=== PATIENT | male | born 1960 | race American Indian/Alaskan Native ===

== ENCOUNTER 2020-10-01 09:22 | Observation (INO) | payer MEDICARE, OTHER ==
--- NOTE | 2020-10-01 11:05 | Electrocardiograph Report ---
[facility] Test Date: 2020-10-01 Test Time: 09:41:32 Pat Name: MERRILL MAJOR Department: Room: Gender: M Hand Cell Tuber: RAJI : 1960 Requested By: ED DOC Order Number: [id number] Reading MD: Robert Carver Measurements Intervals [place] Rate: 68 P: -29 [place]: 179 QRS: 41 QRSD: 80 T: 87 QT: 465 QTc: 496 Interpretive Statements Sinus rhythm No previous ECG available for comparison Electronically Signed On 10-01-2020 11:05:11 EDT by Robert Carver
[2020-10-01] MEDS ORDERED: LACTATED RINGERS 1,000 ML IV ONE (11:33)
[2020-10-01] MEDS ORDERED: METOCLOPRAMIDE 10 MG/2 ML INJ IV ONE (11:33)
[2020-10-01] MEDS ORDERED: HYDROmorphone 1 MG/1 ML INJ IV ONE (11:33)
[2020-10-01] MEDS ORDERED: hydrALAZINE 20 MG/1 ML INJ IV ONE ×2 (11:36→13:18)
--- NOTE | 2020-10-01 11:36 | Emergency Department Report ---
ED General Adult HPI - General Chief complaint: High BP Stated complaint: N/V, WEAKNESS, ELEVATED BLOOD PRESSURE PUI?: No Time Seen by Provider: 10/01/20 11:19 Source: patient, RN notes reviewed, old records reviewed Mode of arrival: Ambulatory Limitations: No Limitations - History of Present Illness Initial comments: The patient is a 59-year-old gentleman. He is not known to myself previously. He currently goes to the [facility]. He reports that he receives hemodialysis Tuesday, Tuesday, Tuesday. His past medical history includes end-stage renal disease, on hemodialysis, diabetes type 2, with history of diabetic ketoacidosis, gastroparesis, hypertension, hypothyroidism, medication noncompliance. The patient recently started hemodialysis within the past month. He had a right-sided thoracic vascular access catheter placed [facility]. He last was dialyzed 2 days ago on Tuesday, September 29. He presents to the ER today with a complaint of abdominal cramping, nausea, v omiting, fatigue. The patient denies headache, neck pain, chest pain. The patient reports that he feels uncomfortable, he is also endorses urinary symptoms. He denies focal extremity weakness and numbness. To me, the patient makes no complaint of homicidality, suicidality, or wanting to overdose. However, he did inform our triage nurses that he was contemplating suicidality. He is not sure if he is in DKA or having a gastroparesis flare. His abdominal cramping is constant, does not radiate anywhere, and is at this point time, does not have exacerbating or relieving factors of the patient can point out. -: Gradual, hour(s) Location: abdomen Radiation: non-radiation Quality: aching Consistency: constant Improves with: none Worsens with: none - Related Data Home Medications Medication Instructions Recorded Confirmed Last Taken Propranolol HCl 10 mg PO DAILY 01/19/18 01/19/18 02/15/17 10 mg lisinopriL [Zestril TAB] 10 mg PO QDAY 01/19/18 01/19/18 02/15/17 10 mg metFORMIN [Glucophage] 500 mg PO QDAY 01/19/18 01/19/18 01/17/18 500 mg methIMAzole [Methimazole] 10 mg PO DAILY 01/19/18 01/19/1817 10 mg Allergies Allergy/AdvReac Type Severity Reaction Status Date / Time No Known Allergies Allergy Unverified 01/19/18 09:04 ED Review of Systems ROS: Stated complaint: N/V, WEAKNESS, ELEVATED BLOOD PRESSURE Other details as noted in HPI Constitutional: malaise, weakness. denies: fever Eyes: denies: eye discharge ENT: denies: epistaxis Respiratory: denies: cough Cardiovascular: denies: chest pain Gastrointestinal: abdominal pain, nausea, vomiting Genitourinary: dysuria Musculoskeletal: myalgia Neurological: weakness Psychiatric: anxiety ED Past Medical Hx - Past Medical History Previous Medical History?: Yes Hx Hypertension: Yes Hx Congestive Heart Failure: No Hx Diabetes: Yes Hx Renal Disease: Yes (Dialysis pt x 3 weeks, chest access) Hx Asthma: No - Surgical History Past Surgical History?: No - Social History Smoking Status: Former Smoker - Medications Home Medications: Home Medications Medication Instructions Recorded Confirmed Last Taken Type Propranolol HCl 10 mg PO DAILY 01/19/18 01/19/18 02/15/17 History 10 mg lisinopriL [Zestril TAB] 10 mg PO QDAY 01/19/18 01/19/18 02/15/17 History 10 mg metFORMIN [Glucophage] 500 mg PO QDAY 01/19/18 01/19/18 01/17/18 History 500 mg methIMAzole [Methimazole] 10 mg PO DAILY 01/19/18 01/19/18 02/15/17 History 10 mg ED Physical Exam - General Limitations: No Limitations General appearance: alert, anxious, in distress - Head Head exam: Present: atraumatic, normocephalic - Eye Eye exam: Present: normal appearance, EOMI. Absent: nystagmus - ENT ENT exam: Present: normal exam, normal orophraynx, mucous membranes moist, normal external ear exam - Neck Neck exam: Present: normal inspection, full ROM. Absent: tenderness, meningismus - Respiratory Respiratory exam: Present: normal lung sounds bilaterally, other (There is a right-sided thoracic vascular access catheter, without redness, pus or streaking.). Absent: respiratory distress, wheezes, rales, rhonchi, stridor, decreased breath sounds - Cardiovascular Cardiovascular Exam: Present: regular rate, normal rhythm, normal heart sounds. Absent: bradycardia, tachycardia, irregular rhythm, systolic murmur, diastolic murmur, rubs, gallop - GI/Abdominal GI/Abdominal exam: Present: soft. Absent: distended, tenderness, guarding, rebound, rigid, pulsatile mass - Rectal Rectal exam: Present: deferred - Extremities Exam Extremities exam: Present: normal inspection, full ROM, other (2+ pulses noted in the bilateral upper and lower extremities. There is no palpable cord. negative Homans sign. Muscular compartments are soft. The pelvis is stable.). Absent: calf tenderness - Back Exam Back exam: Present: normal inspection. Absent: tenderness, CVA tenderness (R), CVA tenderness (L), paraspinal tenderness, vertebral tenderness - Neurological Exam Neurological exam: Present: alert, oriented X3, other (No facial droop. Tongue midline. Extraocular movements intact bilaterally. Facial sensation intact to light touch in V1, V2, V3 distribution bilaterally. 5 and a 5 strength in 4 extremities. Sensation intact to light touch in 4 extremities.). Absent: motor sensory deficit - Psychiatric Psychiatric exam: Present: anxious - Skin Skin exam: Present: warm, dry, intact, normal color. Absent: rash ED Course Vital Signs 10/01/20 10/01/20 09:29 11:52 Temperature 98.0 F Pulse Rate 66 68 Respiratory 20 Rate Blood Pressure 225/113 253/122 O2 Sat by Pulse 100 Oximetry - Reevaluation(s) Reevaluation #1: 10/01/20 11:59 Differential diagnosis, including but not limited to: Hypertensive urgency/emergency, diabetic gastroparesis, diabetic ketoacidosis, azotemia, uremia, metabolic acidosis, encounter for behavioral health screening examination, dysthymia Assessment and plan: 59-year-old gentleman, with multiple chronic medical issues, with acute hypertension, who has not received hemodialysis in 48 hours, presenting with abdominal pain, cramping, history of nausea and vomiting, abdomen soft and benign, without rebound, guarding or peritoneal sign, with a secondary complaint of contemplating suicidality as endorsed to our triage nurse. To me, the patient makes no complaint of endorsement of homicidality or suicidality. The patient remains awake, alert, oriented and sober and exhibits decision-making capacity. Patient was placed on hold status given his articulated complaints to our triage nurse. At this point in time, patient does not meet criteria for 1013 but we will obtain a psychiatric consultation and evaluation. The patient is requesting supportive and symptomatic therapy, he will therefore be placed on a threat monitoring analyst, will give pain medication, nausea medication, obtain x-ray of chest/abdomen and pelvis, and obtain appropriate laboratory studies. Reassess after initial data points. 10/01/20 13:40 While in the emergency room, the patient was progressively and increasingly epifanio tated. His blood pressure remained elevated, and he was having retching. He also removed his IVs. The patient adamantly informed me that he is not homicidal or suicidal. However he is still retching, and his blood pressure is out of control. After additional haloperidol, and hydralazine, symptoms are improved. Contacted nephrology on-call, Dr. Rangel Have discussed this patient's history, physical, laboratory studies, imaging studies and overall plan of care. Nephrology will follow in consultation to assist with hemodialysis initiation, and blood pressure management. We will defer to inpatient team to follow-up on psychiatric recommendations. Hospital physician, Dr. Yecenia Hudson to admit to [facility] 10/01/20 14:20 Patient now resting comfortably on stretcher after multiple interventions. Blood pressure improved. No active vomiting at this time. Defer to inpatient team to follow-up on psychiatric recommendations. ED Medical Decision Making - Lab Data Result diagrams: 10/01/20 12:09 10/01/20 12:09 Vital Signs 10/01/20 10/01/20 09:29 11:52 Temperature 98.0 F Pulse Rate 66 68 Respiratory 20 Rate Blood Pressure 225/113 253/122 O2 Sat by Pulse 100 Oximetry - EKG Data -: EKG Interpreted by Tx EKG shows normal: sinus rhythm Rate: normal - EKG Data 10/01/20 13:40 EKG is interpreted at 09: 41 Sinus rhythm, 68 bpm. Normal axis, QTC 496 ms. Incomplete right bundle branch block. Left ventricular hypertrophy. Abnormal EKG. Not a STEMI. - Radiology Data Radiology results: pending, report reviewed, image reviewed [facility] [address] [place] [address] XRay Report Signed Patient: MERRILL MAJOR MR#: [id number] 9 : 1960 Acct:[id number] Age/Sex: 59 / M ADM Date: 10/01/20 Loc: ED Attending Dr: Ordering Physician: WALTER QUINTANA MD Date of Service: 10/01/20 Procedure(s): XR abd series w cxr 1V Accession Number(s): [id number] cc: WALTER QUINTANA MD Fluoro Time In Minutes: ABDOMEN 4 VIEW(S) INDICATION / CLINICAL INFORMATION: abd pain n/v. COMPARISON: Abdomen x-ray 01/19/2018 FINDINGS: TUBES / LINES: Right internal jugular dialysis catheter projects over SVC BOWEL GAS PATTERN: No significant abnormality. FREE AIR / EXTRALUMINAL GAS: None seen. ADDITIONAL FINDINGS: No significant additional findings. IMPRESSION: 1. No significant abnormality. Signer Name: Arun Lepe MD Signed: 10/01/2020 12:20 PM Workstation Name: [id number] Transcribed By: TL Dictated By: Arun Lepe MD Electronically Authenticated By: Arun Lepe MD Signed Date/Time: 10/01/20 1220 DD/ 1219 Critical care attestation.: If time is entered above; I have spent that time in minutes in the direct care of this critically ill patient, excluding procedure time. ED Disposition Clinical Impression: History of hyperthyroidism, Gastroparesis, Hypertensive urgency, malignant, Encounter for behavioral health screening, End-stage renal disease on hemod ialysis, Transaminitis Disposition: OP ADMIT IP TO THIS HOSP Is pt being admited?: No Condition: Good Referrals: PRIMARY CAREMD [Primary Care Provider] - 3-5 Days
--- NOTE | 2020-10-01 12:25 | XRay Report ---
ABDOMEN 4 VIEW(S) INDICATION / CLINICAL INFORMATION: abd pain n/v. COMPARISON: Abdomen x-ray 01/19/2018 FINDINGS: TUBES / LINES: Right internal jugular dialysis catheter projects over SVC BOWEL GAS PATTERN: No significant abnormality. FREE AIR / EXTRALUMINAL GAS: None seen. ADDITIONAL FINDINGS: No significant additional findings. IMPRESSION: 1. No significant abnormality. Signer Name: Arun Lepe MD Signed: 10/01/2020 12:20 PM Workstation Name: [id number]
[2020-10-01] MEDS ORDERED: HALOPERIDOL LACTATE 5 MG/1 ML INJ IM PRN (12:39)
[2020-10-01 13:01] LABS: Basophils # (Auto) 0.1 K/mm3 (0.0-0.1); Basophils % (Auto) 0.7 % (0.0-1.8); Eosinophils % (Auto) 0.1 % (0.0-4.3); Hematocrit 24.8 % (35.5-45.6); Hemoglobin 8.2 gm/dl (11.8-15.2); Lymphocytes % (Auto) 8.4 % (13.4-35.0); Mean Corpuscular HGB Conc 33 % (32-34); Mean Corpuscular Volume 90 fl (84-94); Monocytes # (Auto) 0.7 K/mm3 (0.0-0.8); Monocytes % (Auto) 5.9 % (0.0-7.3); Platelet Count 237 K/mm3 (140-440); Red Blood Count 2.75 M/mm3 (3.65-5.03); Red Cell Distribution Width 16.3 % (13.2-15.2)
[2020-10-01 13:13] LABS: Alanine Aminotransferase 66 units/L (7-56); Albumin 3.7 g/dL (3.9-5); Blood Urea Nitrogen 36 mg/dL (9-20); Calcium 6.8 mg/dL (8.4-10.2); Hemolysis Index 0
[2020-10-01 13:14] LABS: BUN/Creatinine Ratio 4
[2020-10-01] MEDS ORDERED: HALOPERIDOL LACTATE 5 MG/1 ML INJ IM STA (13:18)
--- NOTE | 2020-10-01 15:14 | Consultation ---
History of Present Illness - Reason for Consult Consult date: 10/01/20 end stage renal disease - History of Present Illness This is a 59 year old male who presented to the E.R to be evaluated for a chief complaint of nausea that began yesterday. Patient denies any diarrhea. On evaluation, patient found to have elevated SBP in the 200's. 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 Warner. Patient states he is on a M,, schedule with his last HD was on Tuesday. He has been on hemodialysis for 1 month now. Patient has a right IJ perm-catheter. Risk and benefits of dialysis were explained and patient consented to continue hemodialysis while being hospitalized. Hemodialysis orders have been placed. We are consulted for management of this patient's ESRD. Past History Past Medical History: anemia, diabetes, dialysis, hypertension Past Surgical History: Other (right IJ perm-cath placed) Social history: no significant social history Family history: no significant family history Medications and Allergies Allergies Allergy/AdvReac Type Severity Reaction Status Date / Time No Known Allergies Allergy Unverified 01/19/18 09:04 Home Medications Medication Instructions Recorded Confirmed Last Taken Type Propranolol HCl 10 mg PO DAILY 01/19/18 01/19/18 02/15/17 History 10 mg lisinopriL [Zestril TAB] 10 mg PO QDAY 01/19/18 01/19/18 02/15/17 History 10 mg metFORMIN [Glucophage] 500 mg PO QDAY 01/19/18 01/19/18 01/17/18 History 500 mg methIMAzole [Methimazole] 10 mg PO DAILY 01/19/18 01/19/18 02/15/17 History 10 mg Active Meds: Active Medications Haloperidol Lactate (Haloperidol Lactate 5 Mg/1 Ml Inj) 2.5 mg IM Q6HR PRN PRN Reason: Agitation Last Admin: 10/01/20 12:50 Dose: 2.5 mg Documented by: Review of Systems Constitutional: fatigue, no weight loss, no weight gain, no fever, no chills, no sweats Ears, nose, mouth and throat: no ear pain, no ear discharge, no tinnitis, no decreased hearing, no nose pain, no nasal congestion Cardiovascular: no chest pain, no orthopnea, no palpitations, no rapid/irregular heart beat, no edema, no syncope, no lightheadedness, no shortness of breath Respiratory: no cough with sputum, no excessive sputum, no hemoptysis, no shortness of breath, no dyspnea on exertion Gastrointestinal: nausea, no diarrhea, no constipation, no change in bowel habits, no hematemesis Genitourinary Male: no dysuria, no hematuria, no flank pain, no discharge, no urinary frequency, no urinary hesitancy, no nocturia Rectal: no pain, no incontinence, no bleeding, no itching, no hemorrhoids Musculoskeletal: no neck stiffness, no neck pain, no shooting arm pain, no arm numbness/tingling, no low back pain, no shooting leg pain Integumentary: no rash, no pruritis, no redness, no sores, no wounds, no jaundice Neurological: no head injury, no transient paralysis, no paralysis, no parathesias, no numbness, no tingling, no seizures, no syncope Psychiatric: anxiety, no memory loss, no change in sleep habits, no sleep disturbances, no insomnia, no hypersomnia Endocrine: no cold intolerance, no heat intolerance, no polyphagia, no excessive thirst, no polydipsia, no polyuria Exam - Vital Signs Vital signs: Vital Signs Temp Pulse Resp BP Pulse Ox 98.0 F 66 20 225/113 100 10/01/20 09:29 10/01/20 09:29 10/01/20 09:29 10/01/20 09:29 10/01/20 09:29 - General Appearance General appearance: appears stated age, other (sleepy but easily aroused) EENT: ATNC Neck: Present: neck supple Respiratory: Decreased Breath Sounds Heart: S1S2 Gastrointestinal: Present: normoactive bowel sounds Integumentary: warm and dry Neurologic: other (Sleepy but easily aroused) Musculoskeletal: Present: other (No edema) Results - Lab Results 10/01/20 12:09 10/01/20 12:09 Most recent lab results Calcium 6.8 mg/dL (8.4-10.2) L 10/01/20 12:09 Magnesium 2.00 mg/dL (1.7-2.3) 10/01/20 12:09 Assessment and Plan Assessment: End Stage Renal Disease Hypertensive Emergency Diabetes Mellitus Anemia Anxiety Nausea Plan: Hemodialysis ordered today for UF and clearance Fluid restriction of 1 liter per day LANDEN as needed for Anemia Reconcile home medications Obtain daily weights Monitor I/O's daily Renally dose medications Assess dialysis needs daily
[2020-10-01] MEDS ORDERED: HYDROmorphone 1 MG/1 ML INJ IV PRN (21:28)
[2020-10-01] MEDS ORDERED: METOCLOPRAMIDE 10 MG/2 ML INJ IV PRN (21:28)
[2020-10-01] MEDS ORDERED: ACETAMINOPHEN 325 MG TAB PO PRN (21:28)
[2020-10-01] MEDS ORDERED: oxyCODONE /ACETAMINOPHEN 5-325MG TAB PO PRN (21:28)
[2020-10-01] MEDS ORDERED: ONDANSETRON 4 MG/2 ML INJ IV PRN ×2 (21:28→23:11)
[2020-10-01 21:29] LABS: Hepatitis B Surface Antigen Non-Reactive (Negative); Hepatitis C Virus Antibody Non-Reactive (NonReactive)
[2020-10-01] MEDS ORDERED: LISINOPRIL 10 MG TAB PO SCH (22:00)
[2020-10-01] MEDS ORDERED: hydrALAZINE 25 MG TAB PO SCH (22:00)
[2020-10-01] MEDS: FAMOTIDINE 10 MG TAB PO SCH (22:50)
[2020-10-01] MEDS: methIMAzole 5 MG TAB PO SCH (22:50)
[2020-10-01] MEDS: HEPARIN 5,000 UNIT/1 ML VIAL SUB-Q SCH ×2 (22:51→22:56)
--- NOTE | 2020-10-01 22:57 | History and Physical Report ---
History of Present Illness Date of examination: 10/01/20 Date of admission: 10/01/20 14:20 Chief complaint: Nausea and vomiting for 1 day History of present illness: 59-year-old man with end-stage renal disease, hypertension, hypothyroidism and T2DM comes in for severe nausea vomiting and fatigue. Patient was recently started on hemodialysis a month ago. Patient thoracic vascular access catheter placed into the [facility] and was dialyzed 2 days ago on September 29. Patient also has a history of for diabetic ketoacidosis again gastroparesis. Patient being admitted for persistent nausea and vomiting and possible gastroparesis. Abdominal discomfort present. Pain is about 6 on a scale of 1-10. Intermittent in nature. No fever or chills. - Past Medical History Previous Medical History?: Yes --Hypertension: Yes --Diabetes: Yes --Renal Disease: Yes (Dialysis pt x 3 weeks, chest access) - Surgical History Past Surgical History?: No - Social History Smoking Status: Former Smoker - Medications Home Medications: Home Medications Medication Instructions Recorded Confirmed Last Taken Type Propranolol HCl 10 mg PO DAILY 01/19/18 01/19/18 02/15/17 History 10 mg lisinopriL [Zestril TAB] 10 mg PO QDAY 01/19/18 01/19/18 02/15/17 History 10 mg metFORMIN [Glucophage] 500 mg PO QDAY 01/19/18 01/19/18 01/17/18 History 500 mg methIMAzole [Methimazole] 10 mg PO DAILY 01/19/18 01/19/18 02/15/17 History 10 mg Review of Systems ROS: Stated complaint: N/V, WEAKNESS, ELEVATED BLOOD PRESSURE Other details as noted in HPI Constitutional: malaise, weakness. denies: fever Eyes: denies: eye discharge ENT: denies: epistaxis Respiratory: denies: cough Cardiovascular: denies: chest pain Gastrointestinal: abdominal pain, nausea, vomiting Genitourinary: dysuria Musculoskeletal: myalgia Neurological: weakness Psychiatric: anxiety Past History Past Medical History: anemia, diabetes, dialysis, hypertension Past Surgical History: Other (right IJ perm-cath placed) Social history: no significant social history Family history: no significant family history Medications and Allergies Allergies Allergy/AdvReac Type Severity Reaction Status Date / Time No Known Allergies Allergy Unverified 01/19/18 09:04 Home Medications Medication Instructions Recorded Confirmed Last Taken Type Propranolol HCl 10 mg PO DAILY 01/19/18 01/19/18 02/15/17 History 10 mg lisinopriL [Zestril TAB] 10 mg PO QDAY 01/19/18 01/19/18 02/15/17 History 10 mg metFORMIN [Glucophage] 500 mg PO QDAY 01/19/18 01/19/18 01/17/18 History 500 mg methIMAzole [Methimazole] 10 mg PO DAILY 01/19/18 01/19/18 02/15/17 History 10 mg Active Meds: Active Medications Acetaminophen (Acetaminophen 325 Mg Tab) 650 mg PO Q4H PRN PRN Reason: Pain MILD(1-3)/Fever >100.5/[place] Famotidine (Famotidine 10 Mg Tab) 10 mg PO BID RODRIGO Haloperidol Lactate (Haloperidol Lactate 5 Mg/1 Ml Inj) 2.5 mg IM Q6HR PRN PRN Reason: Agitation Last Admin: 10/01/20 12:50 Dose: 2.5 mg Documented by: Heparin Sodium (Porcine) (Heparin 5,000 Unit/1 Ml Vial) 5,000 unit SUB-Q Q12HR RODRIGO Hydralazine HCl (Hydralazine 25 Mg Tab) 50 mg PO Q8HR RODRIGO Hydromorphone HCl (Hydromorphone 1 Mg/1 Ml Inj) 0.5 mg IV Q3H PRN PRN Reason: Pain , Severe (7-10) Lisinopril (Lisinopril 10 Mg Tab) 10 mg PO QDAY [facility] Methimazole (Methimazole 5 Mg Tab) 10 mg PO DAILY [facility] Metoclopramide HCl (Metoclopramide 10 Mg/2 Ml Inj) 5 mg IV Q6H PRN PRN Reason: Nausea And Vomiting Ondansetron HCl (Ondansetron 4 Mg/2 Ml Inj) 4 mg IV Q8H PRN PRN Reason: Nausea And Vomiting Oxycodone/Acetaminophen (Oxycodone /Acetaminophen 5-325mg Tab) 1 tab PO Q6H PRN PRN Reason: Pain, Moderate (4-6) Propranolol HCl (Propranolol 10 Mg Tab) 10 mg PO DAILY RODRIGO Sodium Chloride (Sodium Chloride 0.9% 10 Ml Flush Syringe) 10 ml IV BID RODRIGO Sodium Chloride (Sodium Chloride 0.9% 10 Ml Flush Syringe) 10 ml IV PRN PRN PRN Reason: LINE FLUSH Exam - Constitutional Vitals: Temp Pulse Resp BP Pulse Ox 99.3 F 67 19 209/99 100 10/01/20 21:04 10/01/20 21:04 10/01/20 21:04 10/01/20 21:04 10/01/20 21:04 General appearance: Present: mild distress, well-nourished - EENT Eyes: Present: PERRL ENT: hearing intact, clear oral mucosa - Neck Neck: Present: supple, normal ROM - Respiratory Respiratory effort: normal Respiratory: bilateral: CTA - Cardiovascular Heart rate: 78 Rhythm: regular Heart Sounds: Present: S1 & S2. Absent: rub, click - Extremities Extremities: pulses symmetrical, No edema Peripheral Pulses: within normal limits - Abdominal General gastrointestinal: Present: soft, non-tender, non-distended, normal bowel sounds Localized gastrointestinal: tender: diffuse Male genitourinary: Present: normal - Integumentary Integumentary: Present: clear, warm, dry - Musculoskeletal Musculoskeletal: gait normal, strength equal bilaterally - Psychiatric Psychiatric: appropriate mood/affect, intact judgment & insight - Neurologic Neurologic: CNII-XII intact, moves all extremities - Allied Health Allied health notes reviewed: nursing, case management Results - Labs CBC & Chem 7: 10/01/20 12:09 10/01/20 12:09 Labs: Laboratory Last Values WBC 11.5 K/mm3 (4.5-11.0) H 10/01/20 12:09 RBC 2.75 M/mm3 (3.65-5.03) L 10/01/20 12:09 Hgb 8.2 gm/dl (11.8-15.2) L 10/01/20 12:09 Hct 24.8 % (35.5-45.6) L 10/01/20 12:09 MCV 90 fl (84-94) 10/01/20 12:09 MCH 30 pg (28-32) 10/01/20 12:09 MCHC 33 % (32-34) 10/01/20 12:09 RDW 16.3 % (13.2-15.2) H 10/01/20 12:09 Plt Count 237 K/mm3 (140-440) 10/01/20 12:09 Lymph % (Auto) 8.4 % (13.4-35.0) L 10/01/20 12:09 [place] % (Auto) 5.9 % (0.0-7.3) 10/01/20 12:09 Eos % (Auto) 0.1 % (0.0-4.3) 10/01/20 12:09 Baso % (Auto) 0.7 % (0.0-1.8) 10/01/20 12:09 Lymph # (Auto) 1.0 K/mm3 (1.2-5.4) L 10/01/20 12:09 [place] # (Auto) 0.7 K/mm3 (0.0-0.8) 10/01/20 12:09 Eos # (Auto) 0.0 K/mm3 (0.0-0.4) 10/01/20 12:09 Baso # (Auto) 0.1 K/mm3 (0.0-0.1) 10/01/20 12:09 Seg Neutrophils % 84.9 % (40.0-70.0) H 10/01/20 12:09 Seg Neutrophils # 9.8 K/mm3 (1.8-7.7) H 10/01/20 12:09 VBG pH 7.397 (7.320-7.420) 10/01/20 12:09 Sodium 142 mmol/L (137-145) 10/01/20 12:09 Potassium 4.8 mmol/L (3.6-5.0) 10/01/20 12:09 Chloride 102.4 mmol/L (98-107) 10/01/20 12:09 Carbon Dioxide 24 mmol/L (22-30) 10/01/20 12:09 Anion Gap 20 mmol/L 10/01/20 12:09 BUN 36 mg/dL (9-20) H 10/01/20 12:09 Creatinine 8.5 mg/dL (0.8-1.3) H 10/01/20 12:09 Estimated GFR 8 ml/min 10/01/20 12:09 BUN/Creatinine Ratio 4 % 10/01/20 12:09 Glucose 188 mg/dL (75-100) H 10/01/20 12:09 POC Glucose 164 mg/dL (70-105) H 10/01/20 16:54 Hemoglobin A1c 5.4 % (4-6) 10/01/20 12:09 Ketones Quantitative Negative (Negative) 10/01/20 12:09 Calcium 6.8 mg/dL (8.4-10.2) L 10/01/20 12:09 Magnesium 2.00 mg/dL (1.7-2.3) 10/01/20 12:09 Total Bilirubin 0.20 mg/dL (0.1-1.2) 10/01/20 12:09 AST 66 units/L (5-40) H 10/01/20 12:09 ALT 66 units/L (7-56) H 10/01/20 12:09 Alkaline Phosphatase 105 units/L (35-129) 10/01/20 12:09 Total Creatine Kinase 345 units/L (55-170) H 10/01/20 12:09 Total Protein 6.4 g/dL (6.3-8.2) 10/01/20 12:09 Albumin 3.7 g/dL (3.9-5) L 10/01/20 12:09 Albumin/Globulin Ratio 1.4 % 10/01/20 12:09 TSH 1.390 mlU/mL (0.270-4.200) 10/01/20 12:09 Free T4 1.76 ng/dL (0.76-1.46) H 10/01/20 12:09 Salicylates < 0.3 mg/dL (2.8-20.0) L 10/01/20 12:17 Acetaminophen 5.0 ug/mL (10.0-30.0) L 10/01/20 12:17 Plasma/Serum Alcohol < 0.01 % (0-0.07) 10/01/20 12:17 Hepatitis A IgM Ab Non-reactive (NonReactive) 10/01/20 12:09 Hep Bs Antigen Non-reactive (Negative) 10/01/20 12:09 Hep B Core IgM Ab Non-reactive (NonReactive) 10/01/20 12:09 Hepatitis C Antibody Non-reactive (NonReactive) 10/01/20 12:09 Short CBC 10/01/20 Range/Units 12:09 WBC 11.5 H (4.5-11.0) K/mm3 Hgb 8.2 L (11.8-15.2) gm/dl Hct 24.8 L (35.5-45.6) % Plt Count 237 (140-440) K/mm3 BMP 10/01/20 12:09 Sodium 142 Potassium 4.8 Chloride 102.4 Carbon Dioxide 24 BUN 36 H Creatinine 8.5 H Glucose 188 H Calcium 6.8 L Cardiac Enzymes 10/01/20 Range/Units 12:09 Total Creatine Kinase 345 H (55-170) units/L Liver Function 10/01/20 Range/Units 12:09 Total Bilirubin 0.20 (0.1-1.2) mg/dL AST 66 H (5-40) units/L ALT 66 H (7-56) units/L Alkaline Phosphatase 105 (35-129) units/L Albumin 3.7 L (3.9-5) g/dL Assessment and Plan Advance Directives: Yes (Full code) VTE prophylaxis?: Chemical Plan of care discussed with patient/family: Yes - Patient Problems (1) Intractable vomiting with nausea Current Visit: Yes Status: Acute Plan to address problem: Symptomatic treatment for now with IV Zofran and IV Reglan. 5 and rectal suppositories if necessary. No IV fluids because of the patient being on hemodialysis. Give IV fluids if patient is persistently vomiting. (2) Gastroparesis Current Visit: Yes Status: Acute Plan to address problem: High likelihood of gastroparesis Nuclear medicine emptying scan to be done (3) End-stage renal disease on hemodialysis Current Visit: Yes Status: Chronic Plan to address problem: Continue hemodialysis as per schedule. (4) T2DM (type 2 diabetes mellitus) Current Visit: Yes Status: Chronic Qualifiers: Diabetes mellitus rn long term care insulin use: unspecified rn long term care insulin use status Plan to address problem: Seems to be well controlled A1c is reasonable--5.4 Accu-Cheks and sliding scale coverage (5) Hyperthyroidism Current Visit: Yes Status: Chronic Plan to address problem: Check thyroid profile Methimazole may have to be increased to twice a day and also propranolol to be increased to twice a day (6) Transaminitis Current Visit: Yes Status: Acute Plan to address problem: Hepatitis profile negative Possible fatty liver and hepatic steatosis (7) Anemia Current Visit: Yes Status: Chronic Qualifiers: Anemia type: due to chronic kidney disease Chronic kidney disease stage: on chronic dialysis Qualified Code(s): N18.6 - End stage renal disease; D63.1 - Anemia in chronic kidney disease; Z99.2 - Dependence on renal dialysis Plan to address problem: Secondary to end-stage renal disease (8) DVT prophylaxis Current Visit: Yes Status: Acute Plan to address problem: On heparin and GI prophylaxis
[2020-10-01 23:44] LABS: Free T4 (Free Thyroxine) 1.85 ng/dL (0.76-1.46)
[2020-10-02] MEDS: PROPRANOLOL 10 MG TAB PO SCH ×2 (00:04→09:50)
[2020-10-02] MEDS: INSULIN LISPRO 100 UNIT/ML SUB-Q SCH ×3 (00:04→11:25)
[2020-10-02] MEDS ORDERED: hydrALAZINE 20 MG/1 ML INJ IV PRN (01:58)
[2020-10-02] MEDS ORDERED: cloNIDine 0.2 MG TAB PO ONE (05:15)
[2020-10-02] MEDS ORDERED: LISINOPRIL 10 MG TAB PO SCH (07:56)
--- NOTE | 2020-10-02 07:58 | Progress Note ---
Assessment and Plan Assessment and plan: (1) Intractable vomiting with nausea Current Visit: Yes Status: Acute Plan to address problem: Symptomatic treatment for now with IV Zofran and IV Reglan. 5 and rectal suppositories if necessary. No IV fluids because of the patient being on hemodialysis. Give IV fluids if patient is persistently vomiting. (2) Gastroparesis Current Visit: Yes Status: Acute Plan to address problem: High likelihood of gastroparesis Nuclear medicine emptying scan to be done (3) End-stage renal disease on hemodialysis Current Visit: Yes Status: Chronic Plan to address problem: Continue hemodialysis as per schedule. 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 Plan to address problem: Seems to be well controlled A1c is reasonable--5.4 Accu-Cheks and sliding scale coverage (5) Hyperthyroidism Current Visit: Yes Status: Chronic Plan to address problem: Check thyroid profile Methimazole may have to be increased to twice a day and also propranolol to be increased to twice a day (6) Transaminitis Current Visit: Yes Status: Acute Plan to address problem: Hepatitis profile negative Possible fatty liver and hepatic steatosis (7) Anemia Current Visit: Yes Status: Chronic Qualifiers: Anemia type: due to chronic kidney disease Chronic kidney disease stage: on chronic dialysis Qualified Code(s): N18.6 - End stage renal disease; D63.1 - Anemia in chronic kidney disease; Z99.2 - Dependence on renal dialysis Plan to address problem: Secondary to end-stage renal disease (8) DVT prophylaxis Current Visit: Yes Status: Acute Plan to address problem: On heparin and GI prophylaxis 10/02/2020 -Patient had hemodialysis yesterday -Hemoglobin A1c is 5.4 -Blood pressure is uncontrolled and I increased lisinopril from 10 to 20 mg p.o. daily, hydralazine from 5200 mg p.o. 3 times a day -We will continue monitor -Hepatitis panel was negative -Intractable nausea and vomiting likely due to uremia. -Patient can be discharged once symptoms subsided -Patient has hypothyroidism and continue with his home methimazole and pro pranolol History Interval history: Patient is admitted for tractable nausea and vomiting Hospitalist Physical - Physical exam Narrative exam: Not in cardiopulmonary distress. The patient appeared well nourished and normally developed. Vital signs as documented. Head exam is unremarkable. No scleral icterus . Neck is without jugular venous distension, thyromegaly, or carotid bruits. Lungs are clear to auscultation. Cardiac exam reveals regular rate and Rhythm. Abdominal exam reveals normal bowel sounds, nontender, no organomegaly. Extremities are nonedematous and both femoral and pedal pulses are normal. 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 No focal weakness. - Constitutional Vitals: Temp Pulse Resp BP Pulse Ox 98.9 F 58 L 18 172/83 100 10/02/20 03:44 10/02/20 06:08 10/02/20 06:08 10/02/20 06:08 10/02/20 06:08 General appearance: Present: mild distress, well-nourished Results - Labs CBC & Chem 7: 10/01/20 12:09 10/01/20 12:09 Labs: Laboratory Last Values WBC 11.5 K/mm3 (4.5-11.0) H 10/01/20 12:09 RBC 2.75 M/mm3 (3.65-5.03) L 10/01/20 12:09 Hgb 8.2 gm/dl (11.8-15.2) L 10/01/20 12:09 Hct 24.8 % (35.5-45.6) L 10/01/20 12:09 MCV 90 fl (84-94) 10/01/20 12:09 MCH 30 pg (28-32) 10/01/20 12:09 MCHC 33 % (32-34) 10/01/20 12:09 RDW 16.3 % (13.2-15.2) H 10/01/20 12:09 Plt Count 237 K/mm3 (140-440) 10/01/20 12:09 Lymph % (Auto) 8.4 % (13.4-35.0) L 10/01/20 12:09 [place] % (Auto) 5.9 % (0.0-7.3) 10/01/20 12:09 Eos % (Auto) 0.1 % (0.0-4.3) 10/01/20 12:09 Baso % (Auto) 0.7 % (0.0-1.8) 10/01/20 12:09 Lymph # (Auto) 1.0 K/mm3 (1.2-5.4) L 10/01/20 12:09 [place] # (Auto) 0.7 K/mm3 (0.0-0.8) 10/01/20 12:09 Eos # (Auto) 0.0 K/mm3 (0.0-0.4) 10/01/20 12:09 Baso # (Auto) 0.1 K/mm3 (0.0-0.1) 10/01/20 12:09 Seg Neutrophils % 84.9 % (40.0-70.0) H 10/01/20 12:09 Seg Neutrophils # 9.8 K/mm3 (1.8-7.7) H 10/01/20 12:09 VBG pH 7.397 (7.320-7.420) 10/01/20 12:09 Sodium 142 mmol/L (137-145) 10/01/20 12:09 Potassium 4.8 mmol/L (3.6-5.0) 10/01/20 12:09 Chloride 102.4 mmol/L (98-107) 10/01/20 12:09 Carbon Dioxide 24 mmol/L (22-30) 10/01/20 12:09 Anion Gap 20 mmol/L 10/01/20 12:09 BUN 36 mg/dL (9-20) H 10/01/20 12:09 Creatinine 8.5 mg/dL (0.8-1.3) H 10/01/20 12:09 Estimated GFR 8 ml/min 10/01/20 12:09 BUN/Creatinine Ratio 4 % 10/01/20 12:09 Glucose 188 mg/dL (75-100) H 10/01/20 12:09 POC Glucose 114 mg/dL (70-105) H 10/02/20 07:41 Hemoglobin A1c 5.4 % (4-6) 10/01/20 12:09 Ketones Quantitative Negative (Negative) 10/01/20 12:09 Calcium 6.8 mg/dL (8.4-10.2) L 10/01/20 12:09 Magnesium 2.00 mg/dL (1.7-2.3) 10/01/20 12:09 Total Bilirubin 0.20 mg/dL (0.1-1.2) 10/01/20 12:09 AST 66 units/L (5-40) H 10/01/20 12:09 ALT 66 units/L (7-56) H 10/01/20 12:09 Alkaline Phosphatase 105 units/L (35-129) 10/01/20 12:09 Total Creatine Kinase 345 units/L (55-170) H 10/01/20 12:09 Total Protein 6.4 g/dL (6.3-8.2) 10/01/20 12:09 Albumin 3.7 g/dL (3.9-5) L 10/01/20 12:09 Albumin/Globulin Ratio 1.4 % 10/01/20 12:09 TSH 1.180 mlU/mL (0.270-4.200) 10/01/20 22:48 TSH 1.190 mlU/mL (0.270-4.200) 10/01/20 22:48 Free T4 1.85 ng/dL (0.76-1.46) H 10/01/20 22:48 Salicylates < 0.3 mg/dL (2.8-20.0) L 10/01/20 12:17 Acetaminophen 5.0 ug/mL (10.0-30.0) L 10/01/20 12:17 Plasma/Serum Alcohol < 0.01 % (0-0.07) 10/01/20 12:17 Hepatitis A IgM Ab Non-reactive (NonReactive) 10/01/20 12:09 Hep Bs Antigen Non-reactive (Negative) 10/01/20 12:09 Hep B Core IgM Ab Non-reactive (NonReactive) 10/01/20 12:09 Hepatitis C Antibody Non-reactive (NonReactive) 10/01/20 12:09 Avina/IV: Voiding Method Urinal Active Medications - Current Medications Current Medications: Generic Name Dose Route Start Last Admin Trade Name Freq PRN Reason Stop Dose Admin Acetaminophen 650 mg 10/01/20 21:28 Acetaminophen 325 Mg Tab PO Q4H PRN Pain MILD(1-3)/Fever >100.5/[place] Famotidine 10 mg 10/01/20 22:00 10/01/20 22:50 Famotidine 10 Mg Tab PO 10 mg BID RODRIGO Administration Haloperidol Lactate 2.5 mg 10/01/20 12:39 10/01/20 12:50 Haloperidol Lactate 5 Mg/1 Ml Inj IM 2.5 mg Q6HR PRN Administration Agitation Heparin Sodium (Porcine) 5,000 unit 10/01/20 22:00 10/01/20 22:56 Heparin 5,000 Unit/1 Ml Vial SUB-Q Not Given Q12HR [facility] Hydralazine HCl 10 mg 10/02/20 01:58 10/02/20 02:10 Hydralazine 20 Mg/1 Ml Inj IV 10 mg Q6H PRN Administration Blood Pressure Hydromorphone HCl 0.5 mg 10/01/20 21:28 Hydromorphone 1 Mg/1 Ml Inj IV Q3H PRN Pain , Severe (7-10) Insulin Human Lispro 0 unit 10/02/20 00:00 10/02/20 06:11 Insulin Lispro 100 Unit/Ml SUB-Q Not Given Q6HR [facility] Protocol Methimazole 10 mg 10/01/20 21:30 10/01/20 22:50 Methimazole 5 Mg Tab PO 10 mg DAILY RODRIGO Administration Metoclopramide HCl 5 mg 10/01/20 21:28 Metoclopramide 10 Mg/2 Ml Inj IV Q6H PRN Nausea And Vomiting Ondansetron HCl 4 mg 10/01/20 23:11 10/02/20 02:16 Ondansetron 4 Mg/2 Ml Inj IV 4 mg Q3H PRN Administration Nausea And Vomiting Oxycodone/Acetaminophen 1 tab 10/01/20 21:28 10/02/20 02:15 Oxycodone /Acetaminophen 5-325mg Tab PO 1 tab Q6H PRN Administration Pain, Moderate (4-6) Propranolol HCl 10 mg 10/01/20 22:00 10/02/20 00:04 Propranolol 10 Mg Tab PO 10 mg DAILY RODRIGO Administration Sodium Chloride 10 ml 10/01/20 22:00 10/01/20 22:51 Sodium Chloride 0.9% 10 Ml Flush Syringe IV 10 ml BID RODRIGO Administration Sodium Chloride 10 ml 10/01/20 21:28 Sodium Chloride 0.9% 10 Ml Flush Syringe IV PRN PRN LINE FLUSH
[2020-10-02] MEDS ORDERED: hydrALAZINE 25 MG TAB PO SCH ×2 (08:00)
[2020-10-02] MEDS: methIMAzole 5 MG TAB PO SCH (09:14)
[2020-10-02] MEDS: FAMOTIDINE 10 MG TAB PO SCH (09:14)
[2020-10-02] MEDS: hydrALAZINE 100 MG TAB PO SCH ×2 (09:15→13:13)
[2020-10-02] MEDS: HEPARIN 5,000 UNIT/1 ML VIAL SUB-Q SCH (09:15)
--- NOTE | 2020-10-02 09:39 | Discharge Summary ---
Providers - Providers Date of Admission: 10/01/20 14:20 Date of discharge: 10/02/20 Attending physician: EDGAR FORMAN MD 10/01/20 13:18 Consult to Physician [CONS] Urgent Comment: Consulting Provider: ELANA PATEL Physician Instructions: Reason For Exam: esrd htn Primary care physician: [employer]OM[employer] Hospitalization Reason for admission: Uncontrolled hypertension, intractable nausea and vomiting, ESRD on HD Condition: Good Hospital course: Patient was seen and evaluated this morning, patient does not have any nausea and vomiting. Blood pressure is uncontrolled. His medication reconciliation is not accurate. Patient is taking hydralazine 75 mg p.o. 3 times daily, nifedipine 60 mg daily. I have increased hydralazine to 100 mg three times a day, increase nifedipine to 90 mg daily. Patient said his blood pressure has been high and [facility] and he is primary care physician change his medications multiple times. For now I am going to change his medications as stated and advised him to check his blood pressure and [facility] for further adjustment of his blood pressure medications based on the reading. Patient said he was admitted at [place] and gastric emptying study was done and normal. Patient is on promethazine and advised to continue with it. Conrado lee's hemoglobin A1c is 5.4. Patient had dialysis yesterday. Patient was hemodynamically stable and wants to go home. Disposition: TO HOME OR SELFCARE Final Discharge Diagnosis (Prints w/discharge instructions): Uncontrolled hypertension. Intractable nausea and vomiting. 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 The patient appeared well nourished and normally developed. Vital signs as documented. Head exam is unremarkable. No scleral icterus . Neck is without jugular venous distension, thyromegaly, or carotid bruits. Lungs are clear to auscultation. Cardiac exam reveals regular rate and Rhythm. Abdominal exam reveals normal bowel sounds, nontender, no organomegaly. Extremities are nonedematous and both femoral and pedal pulses are normal. 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 No focal weakness. - Constitutional Vitals: Temp Pulse Resp BP Pulse Ox 98.9 F 54 L 18 177/92 100 10/02/20 03:44 10/02/20 09:14 10/02/20 06:08 10/02/20 09:14 10/02/20 06:08 Plan Activity: no restrictions Weight Bearing Status: Full Weight Bearing Diet: low salt, renal Follow up with: PRIMARY CARE, [Primary Care Provider] - 3-5 Days
--- NOTE | 2020-10-02 09:42 | Progress Note ---
Assessment and Plan End Stage Renal Disease Hypertensive Emergency Diabetes Mellitus Anemia Anxiety Nausea Plan: No indication for HD today Fluid restriction of 1 liter per day LANDEN as needed for Anemia Reconcile home medications Obtain daily weights Monitor I/O's daily Renally dose medications Assess dialysis needs daily Subjective Date of service: 10/02/20 Principal diagnosis: ESRD on HD Interval history: symptoms are improving, ready to go home Objective - Vital Signs Vital signs: Vital Signs - 12hr 10/02/20 10/02/20 10/02/20 01:38 01:40 03:44 Temperature 98.9 F Pulse Rate 60 57 L Respiratory 19 Rate Blood Pressure 182/83 188/86 O2 Sat by Pulse 100 Oximetry 10/02/20 10/02/20 10/02/20 05:08 06:08 09:14 Temperature Pulse Rate 59 L 58 L 54 L Respiratory 18 18 Rate Blood Pressure 194/95 172/83 177/92 O2 Sat by Pulse 99 100 Oximetry - General Appearance General appearance: well-developed, well-nourished, appears stated age EENT: ATNC, PERRL, mucous membranes moist Neck: no JVD, no carotid bruit Respiratory: Present: Clear to Ascultation. Absent: Rales, Ronchi Cardiology: regular, S1S2 Gastrointestinal: normoactive bowel sounds, no tenderness, no distended, no masses, no guarding Integumentary: no rash, warm and dry Neurologic: no focal deficit, no asterixis Musculoskeletal: other (no edema in BLE) Psychiatric: mood/affect appropriate, cooperative - Lab 10/01/20 12:09 10/01/20 12:09 Most recent lab results Calcium 6.8 mg/dL (8.4-10.2) L 10/01/20 12:09 Magnesium 2.00 mg/dL (1.7-2.3) 10/01/20 12:09 Medications & Allergies - Medications Allergies/Adverse Reactions: Allergies No Known Allergies Allergy (Unverified 01/19/18 09:04) Home Medications: Home Medications Medication Instructions Recorded Confirmed Last Taken Type Propranolol HCl 10 mg PO DAILY 01/19/18 01/19/18 02/15/17 History 10 mg lisinopriL [Zestril TAB] 10 mg PO QDAY 01/19/18 01/19/18 02/15/17 History 10 mg metFORMIN [Glucophage] 500 mg PO QDAY 01/19/18 01/19/18 01/17/18 History 500 mg methIMAzole [Methimazole] 10 mg PO DAILY 01/19/18 01/19/18 02/15/17 History 10 mg Active Medications: Generic Name Dose Route Start Last Admin Trade Name Freq PRN Reason Stop Dose Admin Acetaminophen 650 mg 10/01/20 21:28 Acetaminophen 325 Mg Tab PO Q4H PRN Pain MILD(1-3)/Fever >100.5/BOLTON Famotidine 10 mg 10/01/20 22:00 10/02/20 09:14 Famotidine 10 Mg Tab PO 10 mg BID RODRIGO Administration Haloperidol Lactate 2.5 mg 10/01/20 12:39 10/01/20 12:50 Haloperidol Lactate 5 Mg/1 Ml Inj IM 2.5 mg Q6HR PRN Administration Agitation Heparin Sodium (Porcine) 5,000 unit 10/01/20 22:00 10/02/20 09:15 Heparin 5,000 Unit/1 Ml Vial SUB-Q Not Given Q12HR [facility] Hydralazine HCl 10 mg 10/02/20 01:58 10/02/20 02:10 Hydralazine 20 Mg/1 Ml Inj IV 10 mg Q6H PRN Administration Blood Pressure Hydralazine HCl 100 mg 10/02/20 08:30 10/02/20 09:15 Hydralazine 100 Mg Tab PO 100 mg TID RODRIGO Administration Hydromorphone HCl 0.5 mg 10/01/20 21:28 Hydromorphone 1 Mg/1 Ml Inj IV Q3H PRN Pain , Severe (7-10) Insulin Human Lispro 0 unit 10/02/20 00:00 10/02/20 06:11 Insulin Lispro 100 Unit/Ml SUB-Q Not Given Q6HR [facility] Protocol Lisinopril 20 mg 10/02/20 10:00 10/02/20 09:14 Lisinopril 20 Mg Tab PO 20 mg QDAY [facility] Administration Methimazole 10 mg 10/01/20 21:30 10/02/20 09:14 Methimazole 5 Mg Tab PO 10 mg DAILY RODRIGO Administration Metoclopramide HCl 5 mg 10/01/20 21:28 Metoclopramide 10 Mg/2 Ml Inj IV Q6H PRN Nausea And Vomiting Ondansetron HCl 4 mg 10/01/20 23:11 10/02/20 02:16 Ondansetron 4 Mg/2 Ml Inj IV 4 mg Q3H PRN Administration Nausea And Vomiting Oxycodone/Acetaminophen 1 tab 10/01/20 21:28 10/02/20 02:15 Oxycodone /Acetaminophen 5-325mg Tab PO 1 tab Q6H PRN Administration Pain, Moderate (4-6) Propranolol HCl 10 mg 10/01/20 22:00 10/02/20 00:04 Propranolol 10 Mg Tab PO 10 mg DAILY RODRIGO Administration Sodium Chloride 10 ml 10/01/20 22:00 10/02/20 09:15 Sodium Chloride 0.9% 10 Ml Flush Syringe IV 10 ml BID RODRIGO Administration Sodium Chloride 10 ml 10/01/20 21:28 Sodium Chloride 0.9% 10 Ml Flush Syringe IV PRN PRN LINE FLUSH
[2020-10-02] MEDS ORDERED: LISINOPRIL 20 MG TAB PO SCH (10:00)
[2020-10-02 10:23] LABS: Basophils # (Auto) 0.1 K/mm3 (0.0-0.1); Eosinophils # (Auto) 0.1 K/mm3 (0.0-0.4); Eosinophils % (Auto) 0.9 % (0.0-4.3); Hematocrit 22.2 % (35.5-45.6); Hemoglobin 7.3 gm/dl (11.8-15.2); Lymphocytes # (Auto) 1.5 K/mm3 (1.2-5.4); Lymphocytes % (Auto) 15.4 % (13.4-35.0); Mean Corpuscular HGB Conc 33 % (32-34); Mean Corpuscular Volume 89 fl (84-94); Monocytes # (Auto) 0.6 K/mm3 (0.0-0.8); Monocytes % (Auto) 6.1 % (0.0-7.3); Platelet Count 239 K/mm3 (140-440); Red Blood Count 2.49 M/mm3 (3.65-5.03)
[2020-10-02 10:49] LABS: Albumin 3.5 g/dL (3.9-5); Calcium 8.2 mg/dL (8.4-10.2)
--- NOTE | 2020-10-02 10:55 | Electrocardiograph Report ---
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
[2020-10-02 11:23] VITALS: BP 174/85
--- NOTE | 2020-10-02 13:23 | Consultation ---
History of Present Illness - Reason for Consult Consult date: 10/02/20 Reason for consult: Suicidal ideation - Chief Complaint Chief complaint: Nausea and vomiting for 1 day - History of Present Psychiatric Illness Per Note: 59-year-old man with end-stage renal disease, hypertension, hypot hyroidism and T2DM comes in for severe nausea vomiting and fatigue. Patient was recently started on hemodialysis a month ago. Patient thoracic vascular access catheter placed into the [facility] and was dialyzed 2 days ago on September 29. Patient also has a history of for diabetic ketoacidosis again gastroparesis. Patient being admitted for persistent nausea and vomiting and possible gastroparesis. Abdominal discomfort present. Pain is about 6 on a scale of 1-10. Intermittent in nature. No fever or chills. Dante Rao is a 59 year old male with a history of PTSD. In my interview with the patient, he reports that he sees a psychiatrist at the [facility]. The patient is unable to recall what psychotropic medications he is on. The patient reports that he has been attending weekly psychotherapy sessions for the past two months. The patient denies being depressed or excessively anxious. He denies any current suicidal/homicidal ideation and denies hallucinations. PAST PSYCHIATRIC HISTORY: Diagnoses: PTSD Suicide attempts or Self-harm behavior: Yes x2 Prior psychiatric hospitalizations: Yes Substance Abuse history: Denies Previous psychiatric medications tried: Unknown Outpatient treatment: yes PAST MEDICAL HISTORY: None reported or document Family Psychiatric History: None reported or documented SOCIAL HISTORY Marital Status: Single Living Arrangements: Lives alone Employment Status:employed Access to guns/weapons: Denies Education: 2 year college History of Abuse: Denies Legal History: Denies REVIEW OF SYSTEMS Constitutional: Negative for weight loss ENT: Negative for stridor Respiratory: Negative for cough or hemoptysis All other systems reviewed and are negative MENTAL STATUS EXAMINATION General Appearance and Behavior: Age appropriate, wearing appropriate clothes, cooperative, polite with questioning, fair eye contact, calm Cooperation: cooperative Psychomotor Behavior: Psychomotor normal Mood: " good" Affect and affective range: congruent with stated mood Thought Process: goal directed Thought Content: Not SI Speech: Normal volume, Regular rate and rhythm Suicidal Ideation: Denies Homicidal Ideation: Denies Hallucination: Denies Delusions: None elicited Impulse Control: Intact Insight and Judgment: Limited Memory: Intact Attention: attentive, engaging Orientation: Alert and oriented Diagnoses: Unspecified Mood disorder- F39 Treatment Plan PSYCHOTHERAPY: Supportive psychotherapy provided MEDICAL: Per primary team DELIRIUM PRECAUTIONS: Please re-orient patient frequently, keep lights on during the day, and minimize benzodiazepines and opiates as these medications could worsen patient's confusion. 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 The patient to follow up with psychiatric outpatient. Please contact with any questions and/or concerns. Case staffed with Dr. Borjas Thank you for the consult. Medications and Allergies Allergies Allergy/AdvReac Type Severity Reaction Status Date / Time No Known Allergies Allergy Unverified 01/19/18 09:04 Home Medications Medication Instructions Recorded Confirmed Last Taken Type Propranolol HCl 10 mg PO DAILY 01/19/18 01/19/18 02/15/17 History 10 mg lisinopriL [Zestril TAB] 10 mg PO QDAY 01/19/18 01/19/18 02/15/17 History 10 mg metFORMIN [Glucophage] 500 mg PO QDAY 01/19/18 01/19/18 01/17/18 History 500 mg methIMAzole [Methimazole] 10 mg PO DAILY 01/19/18 01/19/18 02/15/17 History 10 mg Active Meds: Active Medications Acetaminophen (Acetaminophen 325 Mg Tab) 650 mg PO Q4H PRN PRN Reason: Pain MILD(1-3)/Fever >100.5/[place]OL[place] Famotidine (Famotidine 10 Mg Tab) 10 mg PO BID [facility] Last Admin: 10/02/20 09:14 Dose: 10 mg Documented by: Haloperidol Lactate (Haloperidol Lactate 5 Mg/1 Ml Inj) 2.5 mg IM Q6HR PRN PRN Reason: Agitation Last Admin: 10/01/20 12:50 Dose: 2.5 mg Documented by: Heparin Sodium (Porcine) (Heparin 5,000 Unit/1 Ml Vial) 5,000 unit SUB-Q Q12HR [facility] Last Admin: 10/02/20 09:15 Dose: Not Given Documented by: Hydralazine HCl (Hydralazine 20 Mg/1 Ml Inj) 10 mg IV Q6H PRN PRN Reason: Blood Pressure Last Admin: 10/02/20 02:10 Dose: 10 mg Documented by: Hydralazine HCl (Hydralazine 100 Mg Tab) 100 mg PO TID [facility] Last Admin: 10/02/20 13:13 Dose: 100 mg Documented by: Hydromorphone HCl (Hydromorphone 1 Mg/1 Ml Inj) 0.5 mg IV Q3H PRN PRN Reason: Pain , Severe (7-10) Insulin Human Lispro (Insulin Lispro 100 Unit/Ml) 0 unit SUB-Q Q6HR [facility]; Protocol Last Admin: 10/02/20 11:25 Dose: Not Given Documented by: Lisinopril (Lisinopril 20 Mg Tab) 20 mg PO QDAY [facility] Last Admin: 10/02/20 09:14 Dose: 20 mg Documented by: Methimazole (Methimazole 5 Mg Tab) 10 mg PO DAILY [facility] Last Admin: 10/02/20 09:14 Dose: 10 mg Documented by: Metoclopramide HCl (Metoclopramide 10 Mg/2 Ml Inj) 5 mg IV Q6H PRN PRN Reason: Nausea And Vomiting Ondansetron HCl (Ondansetron 4 Mg/2 Ml Inj) 4 mg IV Q3H PRN PRN Reason: Nausea And Vomiting Last Admin: 10/02/20 02:16 Dose: 4 mg Documented by: Oxycodone/Acetaminophen (Oxycodone /Acetaminophen 5-325mg Tab) 1 tab PO Q6H PRN PRN Reason: Pain, Moderate (4-6) Last Admin: 10/02/20 02:15 Dose: 1 tab Documented by: Propranolol HCl (Propranolol 10 Mg Tab) 10 mg PO DAILY [facility] Last Admin: 10/02/20 09:50 Dose: Not Given Documented by: Sodium Chloride (Sodium Chloride 0.9% 10 Ml Flush Syringe) 10 ml IV BID [facility] Last Admin: 10/02/20 09:15 Dose: 10 ml Documented by: Sodium Chloride (Sodium Chloride 0.9% 10 Ml Flush Syringe) 10 ml IV PRN PRN PRN Reason: LINE FLUSH Mental Status Exam - Vital signs Last Vital Signs Temp 98.3 F 10/02/20 11:20 Pulse 59 L 10/02/20 11:20 Resp 18 10/02/20 11:20 BP 174/85 10/02/20 11:20 Pulse Ox 98 10/02/20 11:20 Results Result Diagrams: 10/02/20 09:16 10/02/20 09:16 Abnormal lab results 10/01/20 10/01/2010/01/21 Range/Units 12:09 12:17 12:17 RBC (3.65-5.03) M/mm3 Hgb (11.8-15.2) gm/dl Hct (35.5-45.6) % RDW (13.2-15.2) % Seg Neutrophils % (40.0-70.0) % Potassium (3.6-5.0) mmol/L BUN (9-20) mg/dL Creatinine (0.8-1.3) mg/dL Glucose (75-100) mg/dL POC Glucose (70-105) mg/dL Calcium (8.4-10.2) mg/dL Phosphorus (2.5-4.5) mg/dL Total Protein (6.3-8.2) g/dL Albumin (3.9-5) g/dL Free T4 1.76 H (0.76-1.46) ng/dL Salicylates < 0.3 L (2.8-20.0) mg/dL Acetaminophen 5.0 L (10.0-30.0) ug/mL 10/01/20 10/01/20 10/02/20 Range/Units 16:54 22:48 06:10 RBC (3.65-5.03) M/mm3 Hgb (11.8-15.2) gm/dl Hct (35.5-45.6) % RDW (13.2-15.2) % Seg Neutrophils % (40.0-70.0) % Potassium (3.6-5.0) mmol/L BUN (9-20) mg/dL Creatinine (0.8-1.3) mg/dL Glucose (75-100) mg/dL POC Glucose 164 H 122 H (70-105) mg/dL Calcium (8.4-10.2) mg/dL Phosphorus (2.5-4.5) mg/dL Total Protein (6.3-8.2) g/dL Albumin (3.9-5) g/dL Free T4 1.85 H (0.76-1.46) ng/dL Salicylates (2.8-20.0) mg/dL Acetaminophen (10.0-30.0) ug/mL 10/02/20 10/02/20 10/02/20 Range/Units 07:41 09:16 09:16 RBC 2.49 L (3.65-5.03) M/mm3 Hgb 7.3 L (11.8-15.2) gm/dl Hct 22.2 L (35.5-45.6) % RDW 17.0 H (13.2-15.2) % Seg Neutrophils % 76.6 H (40.0-70.0) % Potassium 5.4 H (3.6-5.0) mmol/L BUN 22 H (9-20) mg/dL Creatinine 6.3 H (0.8-1.3) mg/dL Glucose 117 H (75-100) mg/dL POC Glucose 114 H (70-105) mg/dL Calcium 8.2 L D (8.4-10.2) mg/dL Phosphorus 4.70 H (2.5-4.5) mg/dL Total Protein 5.2 L (6.3-8.2) g/dL Albumin 3.5 L (3.9-5) g/dL Free T4 (0.76-1.46) ng/dL Salicylates (2.8-20.0) mg/dL Acetaminophen (10.0-30.0) ug/mL 10/02/20 Range/Units 11:20 RBC (3.65-5.03) M/mm3 Hgb (11.8-15.2) gm/dl Hct (35.5-45.6) % RDW (13.2-15.2) % Seg Neutrophils % (40.0-70.0) % Potassium (3.6-5.0) mmol/L BUN (9-20) mg/dL Creatinine (0.8-1.3) mg/dL Glucose (75-100) mg/dL POC Glucose 116 H (70-105) mg/dL Calcium (8.4-10.2) mg/dL Phosphorus (2.5-4.5) mg/dL Total Protein (6.3-8.2) g/dL Albumin (3.9-5) g/dL Free T4 (0.76-1.46) ng/dL Salicylates (2.8-20.0) mg/dL Acetaminophen (10.0-30.0) ug/mL All other labs normal.
== END 2020-10-02 14:15 | disposition home or self-care (01) ==
LOC: ED 09:22 → 3A 14:20
PROVIDERS: ADMIT Internal Medicine; ATTEND Internal Medicine
DX: K31.84 Gastroparesis (principal); I16.0 Hypertensive urgency; I12.0 Hypertensive chronic kidney disease with stage 5 chronic kidney disease or end stage renal disease; N18.6 End stage renal disease; D63.1 Anemia in chronic kidney disease; E11.22 Type 2 diabetes mellitus with diabetic chronic kidney disease; E05.91 Thyrotoxicosis, unspecified with thyrotoxic crisis or storm; F41.9 Anxiety disorder, unspecified; R74.01 Elevation of levels of liver transaminase levels; Z13.30 Encounter for screening examination for mental health and behavioral disorders, unspecified; Z99.2 Dependence on renal dialysis; Z87.891 Personal history of nicotine dependence; Z79.84 Long term (current) use of oral hypoglycemic drugs; Z79.899 Other long term (current) drug therapy; Z98.890 Other specified postprocedural states
CPT/HCPCS: 36415; 74022; 80053; 80074; 82010; 82550; 82805; 82962; 83036; 83735; 84100; 84439; 84443; 85025; 93005; 96372; 96374; 96375; 96376; 99291; G0257; G0378; J0360; J1170; J1630; J2405; J2765; J7120; 80320; G0480; J1644

== ENCOUNTER 2021-01-02 04:46 | Observation (INO) | payer OTHER, MEDICARE ==
[2021-01-02] MEDS ORDERED: ONDANSETRON 4 MG/2 ML INJ IV ONE (05:29)
[2021-01-02] MEDS ORDERED: hydrALAZINE 20 MG/1 ML INJ IV ONE (05:29)
[2021-01-02 06:08] LABS: Hematocrit 30.7 % (35.5-45.6); Hemoglobin 10.3 gm/dl (11.8-15.2); Mean Corpuscular HGB Conc 33 % (32-34); Mean Corpuscular Volume 91 fl (84-94); Platelet Count 318 K/mm3 (140-440); Red Blood Count 3.38 M/mm3 (3.65-5.03); Red Cell Distribution Width 16.8 % (13.2-15.2)
--- NOTE | 2021-01-02 06:09 | XRay Report ---
CHEST 1 VIEW 01/02/2021 5:37 AM INDICATION / CLINICAL INFORMATION: sob. COMPARISON: Right IJ dialysis catheter tip projects over SVC FINDINGS: SUPPORT DEVICES: None. HEART / MEDIASTINUM: No significant abnormality. LUNGS / PLEURA: Moderate bilateral increased interstitial markings characteristic for CHF No pneumoth orax. ADDITIONAL FINDINGS: No significant additional findings. IMPRESSION: 1. CHF Signer Name: Arun Lepe MD Signed: 01/02/2021 6:05 AM Workstation Name: [id number]
[2021-01-02] MEDS ORDERED: IPRATROPIUM/ALBUTEROL SULFATE 3 ML AMPUL.NEB IH ONE (06:29)
--- NOTE | 2021-01-02 06:29 | Emergency Department Report ---
HPI - General Chief Complaint: Dyspnea/Respdistress Time Seen by Provider: 01/02/21 06:13 - HPI HPI: 60-year-old -[place] male presents to the emergency department via EMS from home with complaint of shortness of breath, lower extremity swelling, hypertension and low oxygen. The patient has a history of diabetes, hypertension and end-stage renal disease on hemodialysis on Tuesday/Tuesday/Tuesday. The patient did get dialysis on Tuesday, 2 days ago. However, over the past 4 days patient says that he has had progressively worsening shortness of breath and swelling around his feet and ankles. The shortness of breath worsens with exertion or laying flat. He was found to have a room air oxygen saturation of 72% with EMS and was placed on a nonrebreather. The patient also complains of what appears to be some chronic GI issues includi ng consistent abdominal cramping pains. He says that he was evaluated at [facility] with some type of tests or imaging studies, but does not know what diagnosis he was given and says he did not have outpatient GI follow-up. He follows with the [facility] for primary care. His yarn weight and strength tester is Dr. Donovan. ED Past Medical Hx - Past Medical History Hx Hypertension: Yes Hx Congestive Heart Failure: No Hx Diabetes: Yes Hx Renal Disease: Yes (Dialysis pt x 3 weeks, chest access) Hx Asthma: No Hx HIV: No - Social History Smoking Status: Never Smoker - Medications Home Medications: Home Medications Medication Instructions Recorded Confirmed Last Taken Type Propranolol HCl 10 mg PO DAILY 01/19/18 01/19/18 02/15/17 History 10 mg lisinopriL [Zestril TAB] 10 mg PO QDAY 01/19/18 01/19/18 02/15/17 History 10 mg metFORMIN [Glucophage] 500 mg PO QDAY 01/19/18 01/19/18 01/17/18 History 500 mg methIMAzole [Methimazole] 10 mg PO DAILY 01/19/18 01/19/18 02/15/17 History 10 mg ED Review of Systems ROS: Stated complaint: MARVA/HTN Other details as noted in HPI Comment: All other systems reviewed and negative Constitutional: denies: chills, fever Eyes: denies: eye pain, vision change ENT: denies: ear pain, throat pain Respiratory: cough, orthopnea, shortness of breath, SOB with exertion Cardiovascular: edema. denies: chest pain Gastrointestinal: abdominal pain (chronic). denies: vomiting Genitourinary: denies: dysuria, discharge Musculoskeletal: denies: back pain, arthralgia Skin: denies: rash, lesions Neurological: denies: headache, weakness Physical Exam - Physical Exam Vital Signs: Vital Signs 01/02/21 01/02/21 01/02/21 05:35 05:49 06:01 Pulse Rate 74 74 74 Respiratory 24 25 H Rate Blood Pressure 241/111 231/109 231/109 O2 Sat by Pulse 88 98 Oximetry 01/02/21 06:23 Pulse Rate 84 Respiratory Rate Blood Pressure 217/101 O2 Sat by Pulse Oximetry Physical Exam: GENERAL: The patient is ill-appearing. HENT: Normocephalic. Atraumatic. Patient has moist mucous membranes. EYES: Extraocular motions are intact. NECK: Supple. Trachea is midline. CHEST/LUNGS: Coarse breath sounds throughout the chest. There is tachypnea and some conversational dyspnea. HEART/CARDIOVASCULAR: Regular. There is no tachycardia. There is no murmur. ABDOMEN: Abdomen is soft, nontender. Patient has normal bowel sounds. SKIN: Skin is warm and dry. 1-2+ pitting edema to the bilateral distal lower extremities. NEURO: The patient is awake, alert, and oriented. The patient is cooperative. The patient has no focal neurologic deficits. MUSCULOSKELETAL: There is no tenderness or deformity. ED Course Vital Signs 01/02/21 01/02/21 01/02/21 05:35 05:49 06:01 Pulse Rate 74 74 74 Respiratory 24 25 H Rate Blood Pressure 241/111 231/109 231/109 O2 Sat by Pulse 88 98 Oximetry 01/02/21 06:23 Pulse Rate 84 Respiratory Rate Blood Pressure 217/101 O2 Sat by Pulse Oximetry - Reevaluation(s) Reevaluation #1: 01/02/21 08:20 As the patient is not vaccinated against COVID-19, with the shortness of breath and hypoxia, the admitting hospitalist has asked for the patient to be made a PUI. - Consultations Consultation #1: 01/02/21 08:20 I spoke to the yarn weight and strength tester on-call, Dr. Elkins. He will consult on the patient and arrange for the patient to receive dialysis this morning. ED Medical Decision Making - Lab Data Result diagrams: 01/02/21 05:51 01/02/21 05:51 Lab Results 01/02/21 01/02/21 01/02/21 Range/Units 05:51 05:51 06:53 WBC 14.5 H (4.5-11.0) K/mm3 RBC 3.38 L (3.65-5.03) M/mm3 Hgb 10.3 L (11.8-15.2) gm/dl Hct 30.7 L (35.5-45.6) % MCV 91 (84-94) fl MCH 30 (28-32) pg MCHC 33 (32-34) % RDW 16.8 H (13.2-15.2) % Plt Count 318 (140-440) K/mm3 Seg Neutrophils % Catalyst Operator Gasoline D-Dimer (0-234) ng/mlDDU Sodium 141 (137-145) mmol/L Potassium 5.0 (3.6-5.0) mmol/L Chloride 94.9 L (98-107) mmol/L Carbon Dioxide 28 (22-30) mmol/L Anion Gap 23 mmol/L BUN 38 H (9-20) mg/dL Creatinine 9.2 H (0.8-1.3) mg/dL Estimated GFR 7 ml/min BUN/Creatinine Ratio 4 % Glucose 192 H (75-100) mg/dL Calcium 9.2 (8.4-10.2) mg/dL Total Bilirubin 0.40 (0.1-1.2) mg/dL AST 115 H (5-40) units/L ALT 134 H (7-56) units/L Alkaline Phosphatase 242 H (35-129) units/L Lactate Dehydrogenase (91-180) units/L Troponin T 0.202 H* (0.00-0.029) ng/mL C-Reactive Protein (0.00-1.30) mg/dL NT-Pro-B Natriuret Pep 01191 H (0-900) pg/mL Total Protein 7.0 (6.3-8.2) g/dL Albumin 4.4 (3.9-5) g/dL Albumin/Globulin Ratio 1.7 % Triglycerides 52 (2-149) mg/dL Cholesterol 172 (50-199) mg/dL LDL Cholesterol Direct 64 (50-130) mg/dL HDL Cholesterol 103 H (40-59) mg/dL Cholesterol/HDL Ratio 1.66 % 01/02/21 01/02/21 Range/Units 08:28 08:28 WBC (4.5-11.0) K/mm3 RBC (3.65-5.03) M/mm3 Hgb (11.8-15.2) gm/dl Hct (35.5-45.6) % MCV (84-94) fl MCH (28-32) pg MCHC (32-34) % RDW (13.2-15.2) % Plt Count (140-440) K/mm3 Seg Neutrophils % D-Dimer 805.50 H (0-234) ng/mlDDU Sodium (137-145) mmol/L Potassium (3.6-5.0) mmol/L Chloride (98-107) mmol/L Carbon Dioxide (22-30) mmol/L Anion Gap mmol/L BUN (9-20) mg/dL Creatinine (0.8-1.3) mg/dL Estimated GFR ml/min BUN/Creatinine Ratio % Glucose (75-100) mg/dL Calcium (8.4-10.2) mg/dL Total Bilirubin (0.1-1.2) mg/dL AST (5-40) units/L ALT (7-56) units/L Alkaline Phosphatase (35-129) units/L Lactate Dehydrogenase 397 H (91-180) units/L Troponin T (0.00-0.029) ng/mL C-Reactive Protein 0.10 (0.00-1.30) mg/dL NT-Pro-B Natriuret Pep (0-900) pg/mL Total Protein (6.3-8.2) g/dL Albumin (3.9-5) g/dL Albumin/Globulin Ratio % Triglycerides (2-149) mg/dL Cholesterol (50-199) mg/dL LDL Cholesterol Direct (50-130) mg/dL HDL Cholesterol (40-59) mg/dL Cholesterol/HDL Ratio % - Radiology Data Radiology results: image reviewed interpreted by me: Chest x-ray shows cardiomegaly, pulmonary vascular congestion, and some interstitial edema. No pneumothorax. No obvious pneumonia. - Medical Decision Making This patient presents to the emergency department with complaint of shortness of breath and lower extremity swelling. He is also found to have extremely elevated blood pressure and hypoxia with a room air pulse ox initially in the mid 70s. The patient was placed on a nonrebreather with some improvement and we are able to titrated down to a nasal cannula, but he still requires about 5 L oxygen via nasal cannula in order to avoid desaturation down into the 80s. He has coarse breath sounds on examination and chest x-ray also appears consistent with CHF and volume overload with pulmonary vascular congestion and interstitial edema. Patient's labs shows renal sufficiency consistent with his end-stage renal disease, elevated troponin level of 0.2, proBNP of about 34,000. Nephrology was contacted and consulted and the patient will receive emergency dialysis first thing this morning. He has been given multiple doses of antihypertensive medication with only some mild improvement in his blood pressure. The patient was accepted for admission by the hospitalist, Dr. Saldaña, who has also asked for the patient be placed on PUI precautions tested for COVID-19. Critical Care Time: Yes Critical care time in (mins) excluding proc time.: 31 Critical care attestation.: If time is entered above; I have spent that time in minutes in the direct care of this critically ill patient, excluding procedure time. Critical care time was spent on this patient in doing his initial evaluation, multiple reevaluat ions, ordering and interpretation of labs and imaging, multiple doses of antihypertensive medication, supplemental oxygen for his hypoxia, discussion with the yarn weight and strength tester and hospitalist services. Critical Care Time: 31 minutes ED Disposition Clinical Impression: ESRD needing dialysis, Hypertensive urgency, Transaminitis, Elevated troponin, Hypoxia CHF (congestive heart failure) Qualifiers: Heart failure type: unspecified Heart failure chronicity: unspecified Qualified Code(s): I50.9 - Heart failure, unspecified Volume overload Qualifiers: Hypervolemia type: unspecified Qualified Code(s): E87.70 - Fluid overload, unspecified Disposition: 09 ADMITTED INPATIENT Is pt being admited?: Yes Condition: Serious Time of Disposition: 12:52
[2021-01-02 06:32] LABS: Albumin 4.4 g/dL (3.9-5); Calcium 9.2 mg/dL (8.4-10.2)
[2021-01-02 06:50] LABS: Chol/HDL Ratio 1.66 %
--- NOTE | 2021-01-02 09:26 | History and Physical Report ---
History of Present Illness Date of examination: 01/02/21 Date of admission: 01/02/21 Chief complaint: Shortness of breath History of present illness: Patient is a 60-year-old -[place] male with past medical history of hypertension, diabetes, end-stage renal disease on hemodialysis Tuesday and Tuesday also on unvaccinated male who presents to the hospital with complaint of worsening shortness of breath. Was also noted to have hypertensive urgency w ith systolic blood pressure above 200. Reports that his blood pressure normally runs high and ranges in the 180s to 190s systolic. On room air his oxygen saturation was 72% per EMS and was placed on nonrebreather. During the time of my examination the patient was undergoing dialysis in the ED. He denies any diarrhea loss of taste or smell. He does have history of chronic GI issues consistent of abdominal cramps for which she says has been evaluated at [facility] but does not know what diagnosis. [facility] he is is supposed to follow-up with GI outpatient. Past History Past Medical History: diabetes, hypertension, hyperlipidemia Past Surgical History: Other (HD catheter) Social history: no significant social history Family history: no significant family history Medications and Allergies Allergies Allergy/AdvReac Type Severity Reaction Status Date / Time No Known Allergies Allergy Unverified 01/19/18 09:04 Home Medications Medication Instructions Recorded Confirmed Last Taken Type Propranolol HCl 10 mg PO DAILY 01/19/18 01/19/18 02/15/17 History 10 mg lisinopriL [Zestril TAB] 10 mg PO QDAY 01/19/18 01/19/18 02/15/17 History 10 mg metFORMIN [Glucophage] 500 mg PO QDAY 01/19/18 01/19/18 01/17/18 History 500 mg methIMAzole [Methimazole] 10 mg PO DAILY 01/19/18 01/19/18 02/15/17 History 10 mg Review of Systems Constitutional: weight gain, chills, malaise, lethargy Cardiovascular: edema, shortness of breath, dyspnea on exertion, no chest pain, no orthopnea, no palpitations, no rapid/irregular heart beat Respiratory: shortness of breath, dyspnea on exertion, no cough with sputum, no excessive sputum, no hemoptysis, no congestion, no wheezing, no pleurisy, no pain on inspiration Musculoskeletal: no neck stiffness, no neck pain, no low back pain, no redness of joints, no muscle weakness, no atrophy, no gait dysfunction Neurological: no paralysis, no numbness, no seizures, no tremors, no tic, no change in mentation, no double vision Psychiatric: no memory loss, no hypersomnia, no change in libido, no hopelessness, no confusion, no irritability Exam - Physical Exam Narrative exam: VITAL SIGNS: Reviewed. GENERAL: The patient appears normally developed, Vital signs as documented. HEAD: No signs of head trauma. EYES: Pupils are equal. Extraocular motions intact. EARS: H full oral dentition earing grossly intact. MOUTH: Oropharynx is normal. NECK: No adenopathy, no JVD. CHEST: Chest with clear breath sounds bilaterally. No wheezes, rales, or rhonchi. CARDIAC: Regular rate and rhythm. S1 and S2, without murmurs, gallops, or rubs. VASCULAR: No Edema. Peripheral pulses normal and equal in all extremities. ABDOMEN: Soft, non tender and non distended. No rebound or guarding, and no masses palpated. Bowel Sounds normal. MUSCULOSKELETAL: Good range of motion of all major joints. Extremities without clubbing, cyanosis. Trace edema. NEUROLOGIC EXAM: Alert and oriented x 3 No focal sensory or strength deficits. Speech normal. Follows commands. PSYCHIATRIC: Mood normal. SKIN: detail exam as documented in skin assessment - Constitutional Vitals: Temp Pulse Resp BP Pulse Ox 84 25 H 217/101 98 01/02/21 06:23 01/02/21 06:01 01/02/21 06:23 01/02/21 06:01 HEART Score - HEART Score Troponin: Troponin T 0.202 ng/mL (0.00-0.029) H* 01/02/21 05:51 Results - Labs CBC & Chem 7: 01/02/21 05:51 01/02/21 05:51 Labs: Laboratory Last Values WBC 14.5 K/mm3 (4.5-11.0) H 01/02/21 05:51 RBC 3.38 M/mm3 (3.65-5.03) L 01/02/21 05:51 Hgb 10.3 gm/dl (11.8-15.2) L 01/02/21 05:51 Hct 30.7 % (35.5-45.6) L 01/02/21 05:51 MCV 91 fl (84-94) 01/02/21 05:51 MCH 30 pg (28-32) 01/02/21 05:51 MCHC 33 % (32-34) 01/02/21 05:51 RDW 16.8 % (13.2-15.2) H 01/02/21 05:51 Plt Count 318 K/mm3 (140-440) 01/02/21 05:51 Seg Neutrophils % Deputy Chief Counsel 01/02/21 05:51 Sodium 141 mmol/L (137-145) 01/02/21 05:51 Potassium 5.0 mmol/L (3.6-5.0) 01/02/21 05:51 Chloride 94.9 mmol/L (98-107) L 01/02/21 05:51 Carbon Dioxide 28 mmol/L (22-30) 01/02/21 05:51 Anion Gap 23 mmol/L 01/02/21 05:51 BUN 38 mg/dL (9-20) H 01/02/21 05:51 Creatinine 9.2 mg/dL (0.8-1.3) H 01/02/21 05:51 Estimated GFR 7 ml/min 01/02/21 05:51 BUN/Creatinine Ratio 4 % 01/02/21 05:51 Glucose 192 mg/dL (75-100) H 01/02/21 05:51 Calcium 9.2 mg/dL (8.4-10.2) 01/02/21 05:51 Total Bilirubin 0.40 mg/dL (0.1-1.2) 01/02/21 05:51 AST 115 units/L (5-40) H 01/02/21 05:51 ALT 134 units/L (7-56) H 01/02/21 05:51 Alkaline Phosphatase 242 units/L (35-129) H 01/02/21 05:51 Troponin T 0.202 ng/mL (0.00-0.029) H* 01/02/21 05:51 NT-Pro-B Natriuret Pep 11582 pg/mL (0-900) H 01/02/21 06:53 Total Protein 7.0 g/dL (6.3-8.2) 01/02/21 05:51 Albumin 4.4 g/dL (3.9-5) 01/02/21 05:51 Albumin/Globulin Ratio 1.7 % 01/02/21 05:51 Triglycerides 52 mg/dL (2-149) 01/02/21 05:51 Cholesterol 172 mg/dL (50-199) 01/02/21 05:51 LDL Cholesterol Direct 64 mg/dL (50-130) 01/02/21 05:51 HDL Cholesterol 103 mg/dL (40-59) H 01/02/21 05:51 Cholesterol/HDL Ratio 1.66 % 01/02/21 05:51 Assessment and Plan Assessment and plan: Patient is a 60-year-old -[place]ian male with past medical history of hypertension, diabetes, end-stage renal disease on hemodialysis Tuesday and Tuesday also on unvaccinated male who presents to the hospital with complaint of worsening shortness of breath. Was also noted to have hypertensive urgency with systolic blood pressure above 200. Reports that his blood pressure normally runs high and ranges in the 180s to 190s systolic. On room air his oxygen saturation was 72% per EMS and was placed on nonrebreather. During the time of my examination the patient was undergoing dialysis in the ED. He denies any diarrhea loss of taste or smell. He does have history of chronic GI issues consistent of abdominal cramps for which she says has been evaluated at [facility] but does not know what diagnosis. [facility] he is is supposed to follow-up with GI outpatient. Chest x-ray shows cardiomegaly, pulmonary vascular congestion, and some interstitial edema. No pneumothorax. No obvious pneumonia. Acute hypoxic respiratory failure of unknown etiology Pulmonary edema with possible underlining community-acquired pneumonia End-stage renal disease on HD Hypertensive urgency Probable congestive heart failure etiology unknown at this time Passive hepatic congestion PUI for Covid pneumonia Hyperthyrodisim Plan Admit patient to MedSurg unit until COVID-19 is ruled out Patient is already undergoing emergent HD Resume appropriate home medications and monitor blood pressure closely. Will like a gradual reduction considering a chronic history of elevated blood pressure Monitor liver function test. If no clinical change patient may need cardiac ultrasound included imaging of the abdomen and pelvis to further evaluate the liver Continue diabetic medication and wanted Accu-Cheks AC at bedtime DVT and GI prophylaxis Medication history requested continues to evaluate and will reconcile once history is obtained. Plan of care discussed with the patient indeed Advance Directives: Yes Plan of care discussed with patient/family: Yes
[2021-01-02 09:39] LABS: C-Reactive Protein 0.1 mg/dL (0.00-1.30)
[2021-01-02] MEDS ORDERED: LISINOPRIL 10 MG TAB PO SCH (10:00)
[2021-01-02] MEDS ORDERED: metFORMIN 500 MG TAB PO SCH (10:00)
[2021-01-02] MEDS ORDERED: NALOXONE 0.4 MG/1 ML INJ IV PRN (10:00)
[2021-01-02] MEDS ORDERED: DEXTROSE 50% IN WATER (25GM) 50 ML SYRINGE IV PRN (10:00)
[2021-01-02] MEDS ORDERED: amLODIPine 10 MG TAB PO SCH (10:00)
[2021-01-02] MEDS ORDERED: oxyCODONE /ACETAMINOPHEN 5-325MG TAB PO PRN (10:00)
[2021-01-02] MEDS ORDERED: METHIMAZOLE 10 MG PO SCH (10:00)
[2021-01-02] MEDS ORDERED: ONDANSETRON 4 MG/2 ML INJ IV PRN (10:00)
[2021-01-02] MEDS ORDERED: ACETAMINOPHEN 325 MG TAB PO PRN (10:00)
[2021-01-02] MEDS ORDERED: ALBUTEROL 2.5 MG/3 ML NEBU IH PRN (11:00)
[2021-01-02] MEDS: DOCUSATE SODIUM 100 MG CAP PO SCH ×3 (11:25→22:15)
[2021-01-02] MEDS: FAMOTIDINE 20 MG TAB PO SCH ×2 (11:25→22:07)
[2021-01-02] MEDS: INSULIN LISPRO 100 UNIT/ML SUB-Q SCH ×3 (11:26→22:09)
[2021-01-02] MEDS: methIMAzole 5 MG TAB PO SCH (11:34)
[2021-01-02] MEDS: PROPRANOLOL 10 MG TAB PO SCH (11:34)
--- NOTE | 2021-01-02 14:51 | Consultation ---
History of Present Illness - Reason for Consult Consult date: 01/02/21 end stage renal disease Requesting physician: CORRINA GUZMAN - History of Present Illness Patient is a 60-year-old -Stateless male with past medical history of hypertension, diabetes, end-stage renal disease on hemodialysis Tuesday and Tuesday also an unvaccinated male who presents to the hospital with complaint of worsening shortness of breath. Was also noted to have hypertensive urgency with systolic blood pressure above 200. Reports that his blood pressure normally runs high and ranges in the 180s to 190s systolic. On room air his oxygen saturation was 72% per EMS and was placed on nonrebreather. During the time of my examination the patient was undergoing dialysis in the ED. He denies any diarrhea loss of taste or smell. He does have history of chronic GI issues consistent of abdominal cramps for which she says has been evaluated at [facility] but does not know what diagnosis. [facility] he is is supposed to follow-up with GI outpatient. Past History Past Medical History: diabetes, hypertension, hyperlipidemia Past Surgical History: Other (HD catheter) Social history: no significant social history Family history: no significant family history Medications and Allergies Allergies Allergy/AdvReac Type Severity Reaction Status Date / Time No Known Allergies Allergy Unverified 01/19/18 09:04 Home Medications Medication Instructions Recorded Confirmed Last Taken Type Propranolol HCl 10 mg PO DAILY 01/19/18 01/19/18 02/15/17 History 10 mg lisinopriL [Zestril TAB] 10 mg PO QDAY 01/19/18 01/19/18 02/15/17 History 10 mg metFORMIN [Glucophage] 500 mg PO QDAY 01/19/18 01/19/18 01/17/18 History 500 mg methIMAzole [Methimazole] 10 mg PO DAILY 01/19/18 01/19/18 02/15/17 History 10 mg Active Meds: Active Medications Albuterol (Albuterol 2.5 Mg/3 Ml Nebu) 2.5 mg IH Q3HRT PRN PRN Reason: Shortness Of Breath Amlodipine Besylate (Amlodipine 10 Mg Tab) 10 mg PO QDAY [facility] Last Admin: 01/02/21 11:25 Dose: 10 mg Documented by: Dextrose (Dextrose 50% In Water (25gm) 50 Ml Syringe) 50 ml IV Q30MIN PRN; Protocol PRN Reason: Hypoglycemia Docusate Sodium (Docusate Sodium 100 Mg Cap) 100 mg PO BID [facility] Last Admin: 01/02/21 11:25 Dose: 100 mg Documented by: Famotidine (Famotidine 20 Mg Tab) 20 mg PO BID [facility] Last Admin: 01/02/21 11:25 Dose: 20 mg Documented by: Heparin Sodium (Porcine) (Heparin 5,000 Unit/1 Ml Vial) 5,000 unit SUB-Q Q8HR [facility] Hydralazine HCl (Hydralazine 100 Mg Tab) 100 mg PO TID [facility] Ceftriaxone Sodium (Rocephin/Ns 1 Gm/50 Ml) 1 gm in 50 mls @ 100 mls/hr IV Q24H [facility]; Protocol Insulin Human Lispro (Insulin Lispro 100 Unit/Ml) 0 unit SUB-Q ACHS [facility]; Protocol Last Admin: 01/02/21 11:26 Dose: 2 unit Documented by: Lisinopril (Lisinopril 10 Mg Tab) 10 mg PO QDAY [facility] Last Admin: 01/02/21 11:24 Dose: 10 mg Documented by: Metformin HCl (Metformin 500 Mg Tab) 500 mg PO QDDIAB [facility] Last Admin: 01/02/21 11:25 Dose: 500 mg Documented by: Methimazole (Methimazole 5 Mg Tab) 10 mg PO QDAY [facility] Last Admin: 01/02/21 11:34 Dose: 10 mg Documented by: Naloxone HCl (Naloxone 0.4 Mg/1 Ml Inj) 0.1 mg IV Q2MIN PRN PRN Reason: Res Rate </= 8 or 02 SAT < 92% Ondansetron HCl (Ondansetron 4 Mg/2 Ml Inj) 4 mg IV Q4H PRN PRN Reason: Nausea And Vomiting Oxycodone/Acetaminophen (Oxycodone /Acetaminophen 5-325mg Tab) 1 tab PO Q6H PRN PRN Reason: Pain, Moderate (4-6) Propranolol HCl (Propranolol 10 Mg Tab) 10 mg PO DAILY [facility] Last Admin: 01/02/21 11:34 Dose: 10 mg Documented by: Sodium Chloride (Sodium Chloride 0.9% 10 Ml Flush Syringe) 10 ml IV BID [facility] Last Admin: 01/02/21 11:26 Dose: Not Given Documented by: Sodium Chloride (Sodium Chloride 0.9% 10 Ml Flush Syringe) 10 ml IV PRN PRN PRN Reason: LINE FLUSH Review of Systems All systems: negative (Negative except as noted above) Exam - Vital Signs Vital signs: Vital Signs Pulse Resp BP Pulse Ox 78 13 236/123 89 01/02/21 05:23 01/02/21 05:23 01/02/21 05:23 01/02/21 05:23 - General Appearance General appearance: well-developed, well-nourished, appears stated age EENT: PERRL, mucous membranes moist Neck: Present: neck supple, trachea midline, Other (IJ PermCath in place). Absent: JVD/HJR, Masses Respiratory: Decreased Breath Sounds (At the bases) Heart: regular, normal heart rate, S1S2, no murmurs Gastrointestinal: Present: normal, normoactive bowel sounds Integumentary: other (1+ edema) Results - Lab Results 01/02/21 05:51 01/02/21 05:51 Most recent lab results Calcium 9.2 mg/dL (8.4-10.2) 01/02/21 05:51 Assessment and Plan Impression * End-stage renal disease on maintenance hemodialysis * Respiratory failure secondary to CHF * Accelerated hypertension * Diabetes * Anemia Recommendations * Patient is currently undergoing dialysis. Remove fluid as tolerated. Reassess patient again tomorrow. He may need additional dialysis again tomorrow * His blood pressure remains elevated. Adjust antihypertensive medication * Adjust diet and meds for ESRD state * Discontinue Metformin * Avoid nephrotoxins * Monitor fluid status and electrolytes closely * Epogen once blood pressure is under better control * Binders with meals * Thank you very much for the consultation. Shall follow along with you
--- NOTE | 2021-01-02 15:08 | Nuclear Medicine Report ---
NUCLEAR MEDICINE PERFUSION LUNG SCAN INDICATION / CLINICAL INFORMATION: Possible pulmonary embolism. TECHNIQUE: 5.1 mCi of Tc-99m MAA were given by IV. COMPARISON: Chest radiograph dated 01/02/2021. FINDINGS: PERFUSION: No significant perfusion defects. ADDITIONAL FINDINGS: None. IMPRESSION: 1. Low probability for pulmonary embolism. Signer Name: Kevin Santacruz MD Signed: 01/02/2021 3:04 PM Workstation Name: [id number]
[2021-01-02] MEDS: cefTRIAXone/NS 1 GM/50 ML 1 GM/50 ML BAG IV SCH (16:55)
[2021-01-02] MEDS: HEPARIN 5,000 UNIT/1 ML VIAL SUB-Q SCH ×3 (16:56→22:14)
[2021-01-02] MEDS: hydrALAZINE 100 MG TAB PO SCH ×2 (16:57→22:07)
--- NOTE | 2021-01-02 17:13 | Vascular Lab Report ---
DUPLEX DOPPLER LOWER EXTREMITY VEINS, BILATERAL INDICATION / CLINICAL INFORMATION: VTE. TECHNIQUE: Duplex doppler imaging was performed through the veins of both lower extremities using perry ous compression and other maneuvers. COMPARISON: None available. FINDINGS: RIGHT COMMON FEMORAL VEIN: Negative. RIGHT FEMORAL VEIN: Negative. RIGHT POPLITEAL VEIN: Negative. RIGHT CALF VEINS: Negative. LEFT COMMON FEMORAL VEIN: Negative. LEFT FEMORAL VEIN: Negative. LEFT POPLITEAL VEIN: Negative. LEFT CALF VEINS: Negative. ADDITIONAL FINDINGS: None. IMPRESSION: 1. No sonographic evidence for DVT in either lower extremity. Scribed by: Chandrika Sinclair RDMS, RVT Scribed: 01/02/2021 2:27 PM I have reviewed the images, agree with this report, and edited this report as needed. Signer Name: Saleem Martin MD Signed: 01/02/2021 5:08 PM Workstation Name: [id number]
[2021-01-02 17:59] LABS: Band Neutrophils # (Manual) 1.2 K/mm3; Ovalocytes 1+; Platelet Estimate Consistent w Auto; Total Cells Counted 100
[2021-01-03] MEDS: HEPARIN 5,000 UNIT/1 ML VIAL SUB-Q SCH ×2 (06:27→13:01)
[2021-01-03 06:42] LABS: Basophils # (Auto) 0.1 K/mm3 (0.0-0.1); Basophils % (Auto) 0.6 % (0.0-1.8); Eosinophils % (Auto) 0.2 % (0.0-4.3); Hemoglobin 9.4 gm/dl (11.8-15.2); Lymphocytes # (Auto) 1.9 K/mm3 (1.2-5.4); Lymphocytes % (Auto) 14.9 % (13.4-35.0); Mean Corpuscular HGB Conc 33 % (32-34); Mean Corpuscular Volume 91 fl (84-94); Monocytes # (Auto) 1.1 K/mm3 (0.0-0.8); Monocytes % (Auto) 8.3 % (0.0-7.3); Platelet Count 315 K/mm3 (140-440); Red Blood Count 3.19 M/mm3 (3.65-5.03); Red Cell Distribution Width 16.9 % (13.2-15.2)
[2021-01-03] MEDS ORDERED: hydrALAZINE 20 MG/1 ML INJ IV ONE (06:46)
[2021-01-03 07:17] LABS: Albumin 3.9 g/dL (3.9-5); Calcium 8.6 mg/dL (8.4-10.2)
[2021-01-03] MEDS: PROPRANOLOL 10 MG TAB PO SCH (08:40)
[2021-01-03] MEDS: FAMOTIDINE 20 MG TAB PO SCH (08:40)
[2021-01-03] MEDS: hydrALAZINE 100 MG TAB PO SCH ×2 (08:40→13:16)
[2021-01-03] MEDS ORDERED: LISINOPRIL 10 MG TAB PO SCH (08:55)
[2021-01-03] MEDS: DOCUSATE SODIUM 100 MG CAP PO SCH (09:07)
[2021-01-03] MEDS: methIMAzole 5 MG TAB PO SCH (09:08)
--- NOTE | 2021-01-03 09:11 | Consultation ---
History of Present Illness Consult date: 01/03/21 Consult reason: shortness of breath History of present illness: 60 year old male presenting with hypertensive urgency, shortness of breath that currently resolved after hemodialysis. Patient has multiple recent admissions to [facility] with similar complaints and most of the time end up leaving A before any cardiac work-up is performed. Review of his labs from [facility] reveals chronically elevated troponin. ECG this admission showing no ischemic changes. Patient currently asymptomatic and is requesting to go home. Past History Past Medical History: diabetes, hypertension, hyperlipidemia Past Surgical History: Other (HD catheter) Social history: no significant social history Family history: no significant family history Medications and Allergies Allergies Allergy/AdvReac Type Severity Reaction Status Date / Time No Known Allergies Allergy Verified 01/02/21 19:12 Home Medications Medication Instructions Recorded Confirmed Last Taken Type Propranolol HCl 10 mg PO DAILY 01/19/18 01/02/21 1 Day Ago History ~01/01/21 lisinopriL [Zestril TAB] 10 mg PO QDAY 01/19/18 01/02/21 1 Day Ago History ~01/01/21 10 mg metFORMIN [Glucophage] 500 mg PO QDAY 01/19/18 01/02/21 01/01/21 22:00 History methIMAzole [Methimazole] 20 mg PO DAILY 01/19/18 01/02/21 1 Day Ago History ~01/01/21 Active Meds: Active Medications Albuterol (Albuterol 2.5 Mg/3 Ml Nebu) 2.5 mg IH Q3HRT PRN PRN Reason: Shortness Of Breath Dextrose (Dextrose 50% In Water (25gm) 50 Ml Syringe) 50 ml IV Q30MIN PRN; Protocol PRN Reason: Hypoglycemia Docusate Sodium (Docusate Sodium 100 Mg Cap) 100 mg PO BID [facility] Last Admin: 01/02/21 22:15 Dose: Not Given Documented by: Famotidine (Famotidine 20 Mg Tab) 20 mg PO BID [facility] Last Admin: 01/02/21 22:07 Dose: 20 mg Documented by: Heparin Sodium (Porcine) (Heparin 5,000 Unit/1 Ml Vial) 5,000 unit SUB-Q Q8HR [facility] Last Admin: 01/03/21 06:27 Dose: Not Given Documented by: Hydralazine HCl (Hydralazine 100 Mg Tab) 100 mg PO TID [facility] Last Admin: 01/02/21 22:07 Dose: 100 mg Documented by: Hydralazine HCl (Hydralazine 20 Mg/1 Ml Inj) 10 mg IV Q4HR PRN PRN Reason: Hypertension Ceftriaxone Sodium (Rocephin/Ns 1 Gm/50 Ml) 1 gm in 50 mls @ 100 mls/hr IV Q24H [facility]; Protocol Last Admin: 01/02/21 16:55 Dose: 100 mls/hr Documented by: Insulin Human Lispro (Insulin Lispro 100 Unit/Ml) 0 unit SUB-Q ACHS [facility]; Protocol Last Admin: 01/02/21 22:09 Dose: 3 unit Documented by: Lisinopril (Lisinopril 10 Mg Tab) 40 mg PO QDAY [facility] Methimazole (Methimazole 5 Mg Tab) 10 mg PO QDAY [facility] Last Admin: 01/02/21 11:34 Dose: 10 mg Documented by: Naloxone HCl (Naloxone 0.4 Mg/1 Ml Inj) 0.1 mg IV Q2MIN PRN PRN Reason: Res Rate </= 8 or 02 SAT < 92% Nifedipine (Nifedipine Xl 90 Mg Tab) 90 mg PO QDAY [facility] Ondansetron HCl (Ondansetron 4 Mg/2 Ml Inj) 4 mg IV Q4H PRN PRN Reason: Nausea And Vomiting Oxycodone/Acetaminophen (Oxycodone /Acetaminophen 5-325mg Tab) 1 tab PO Q6H PRN PRN Reason: Pain, Moderate (4-6) Propranolol HCl (Propranolol 10 Mg Tab) 10 mg PO DAILY [facility] Last Admin: 01/02/21 11:34 Dose: 10 mg Documented by: Sodium Chloride (Sodium Chloride 0.9% 10 Ml Flush Syringe) 10 ml IV BID [facility] Last Admin: 01/02/21 22:08 Dose: 10 ml Documented by: Sodium Chloride (Sodium Chloride 0.9% 10 Ml Flush Syringe) 10 ml IV PRN PRN PRN Reason: LINE FLUSH Review of Systems All systems: negative Physical Examination Vital Signs Pulse Resp BP Pulse Ox 78 13 236/123 89 01/02/21 05:23 01/02/21 05:23 01/02/21 05:23 01/02/21 05:23 General appearance: no acute distress HEENT: Positive: PERRL Neck: Positive: neck supple Cardiac: Positive: Reg Rate and Rhythm, Systolic Murmur Lungs: Positive: Normal Exam Neuro: Positive: Grossly Intact Abdomen: Positive: Soft Extremities: Absent: edema Results 01/03/21 05:24 01/03/21 05:24 Cardiac Enzymes 01/02/21 01/03/21 Range/Units 08:28 05:24 AST 48 H (5-40) units/L Lactate Dehydrogenase 397 H (91-180) units/L CBC 01/03/21 Range/Units 05:24 WBC 13.0 H (4.5-11.0) K/mm3 RBC 3.19 L (3.65-5.03) M/mm3 Hgb 9.4 L (11.8-15.2) gm/dl Hct 29.0 L (35.5-45.6) % Plt Count 315 (140-440) K/mm3 Lymph # (Auto) 1.9 (1.2-5.4) K/mm3 [place] # (Auto) 1.1 H (0.0-0.8) K/mm3 Eos # (Auto) 0.0 (0.0-0.4) K/mm3 Baso # (Auto) 0.1 (0.0-0.1) K/mm3 Comprehensive Metabolic Panel 01/03/21 Range/Units 05:24 Sodium 137 (137-145) mmol/L Potassium 4.4 (3.6-5.0) mmol/L Chloride 95.2 L (98-107) mmol/L Carbon Dioxide 29 (22-30) mmol/L BUN 31 H (9-20) mg/dL Creatinine 6.6 H (0.8-1.3) mg/dL Glucose 141 H (75-100) mg/dL Calcium 8.6 (8.4-10.2) mg/dL AST 48 H (5-40) units/L ALT 96 H (7-56) units/L Alkaline Phosphatase 219 H (35-129) units/L Total Protein 6.9 (6.3-8.2) g/dL Albumin 3.9 (3.9-5) g/dL - EKG Interpretation EKG: sinus rhythm EKG interpretations - Telemetry EKG Rhythm: Sinus Rhythm Assessment and Plan Shortness of breath Resolved after HD Hypertensive urgency Managed by nephrology ESRD on HD Chronically elevated troponin No ischemic findings on ECG Transaminitis Non-compliance History of leaving AMA prior to cardiac work-up Type II DM Thyroid disorder Recommendations: If patient decides to stay in house, an echocardiogram is warranted as initial cardiac evaluation Otherwise, I gave the patient my contact information and urged him to schedule outpatient appointment for cardiac evaluation
[2021-01-03] MEDS: INSULIN LISPRO 100 UNIT/ML SUB-Q SCH ×2 (09:20→12:58)
--- NOTE | 2021-01-03 09:26 | Discharge Summary ---
Providers - Providers Date of Admission: 01/02/21 09:27 Attending physician: CORRINA GUZMAN MD 01/02/21 Consult to Case Management [CONS] Routine Services Needed at Discharge: Shake Loader Notified:: no 01/02/21 08:13 Consult to Physician [CONS] Routine Comment: Consulting Provider: EMMA SHEN Physician Instructions: Reason For Exam: ESRD needing dialysis 01/02/21 09:27 Consult to Physician [CONS] Routine Comment: Consulting Provider: FE COTTO Physician Instructions: Reason For Exam: nstemi type 2 01/02/21 09:30 Consult to Dietitian/Nutrition [CONS] Routine Physician Instructions: Reason For Exam: Reason for Consult: Diet education 01/02/21 19:11 Physical Therapy Evaluation and Treat [CONS] Routine Comment: Reason For Exam: pt requesting home health assistance Primary care physician: BRICK PAVER Hospitalization Reason for admission: Shortness of breath Condition: Stable Hospital course: Patient is a 60-year-old -[place] male with past medical history of hypertension, diabetes, end-stage renal disease on hemodialysis Tuesday and Tuesday also on unvaccinated male who presents to the hospital with complaint of worsening shortness of breath. Was also noted to have hypertensive urgency with systolic blood pressure above 200. Reports that his blood press ure normally runs high and ranges in the 180s to 190s systolic. On room air his oxygen saturation was 72% per EMS and was placed on nonrebreather. During the time of my examination the patient was undergoing dialysis in the ED. He denies any diarrhea loss of taste or smell. He does have history of chronic GI issues consistent of abdominal cramps for which she says has been evaluated at [facility] but does not know what diagnosis. [facility] he is is supposed to follow-up with GI outpatient. Chest x-ray shows cardiomegaly, pulmonary vascular congestion, and some interstitial edema. No pneumothorax. No obvious pneumonia. Acute hypoxic respiratory failure of unknown etiology Pulmonary edema with possible underlining community-acquired pneumonia End-stage renal disease on HD Hypertensive urgency Probable congestive heart failure etiology unknown at this time Passive hepatic congestion PUI for Covid pneumonia Hyperthyrodisim Plan 01/03: This morning following admission and dialysis yesterday blood pressure was still elevated overnight his medications were changed from amlodipine to nifedipine which is what he takes at home which brought his blood pressure down to 164. The patient is insistent that he has to be discharged that he gets anxious in the hospital and is willing to sign out AGAINST MEDICAL ADVICE. While he is on 2 L of oxygen he does not demonstrate any visible shortness of breath with exertion I have asked the nursing staff to do a home O2 eval on him prior to discharge. Nephrology did evaluate him and would like to dialyze him today before he gets discharged advised the patient to stay for this. He will follow up with his primary enterprise software developer outpatient for continued dialysis on his scheduled days. Disposition: HOME / SELF CARE / HOMELESS Final Discharge Diagnosis (Prints w/discharge instructions): Volume overload with hypertensive emergency and in end-stage renal disease Time spent for discharge: 35-minute Core Measure Documentation - Palliative Care Palliative Care/ Comfort Measures: Not Applicable - Core Measures Any of the following diagnoses?: none Exam - Physical Exam Narrative exam: VITAL SIGNS: Reviewed. GENERAL: The patient appears normally developed, Vital signs as documented. HEAD: No signs of head trauma. EYES: Pupils are equal. Extraocular motions intact. EARS: H full oral dentition earing grossly intact. MOUTH: Oropharynx is normal. NECK: No adenopathy, no JVD. CHEST: Chest with clear breath sounds bilaterally. No wheezes, rales, or rhonchi. CARDIAC: Regular rate and rhythm. S1 and S2, without murmurs, gallops, or rubs. VASCULAR: No Edema. Peripheral pulses normal and equal in all extremities. ABDOMEN: Soft, non tender and non distended. No rebound or guarding, and no masses palpated. Bowel Sounds normal. MUSCULOSKELETAL: Good range of motion of all major joints. Extremities without clubbing, cyanosis. Trace edema. NEUROLOGIC EXAM: Alert and oriented x 3 No focal sensory or strength deficits. Speech normal. Follows commands. PSYCHIATRIC: Mood normal. SKIN: detail exam as documented in skin assessment - Constitutional Vitals: Temp Pulse Resp BP Pulse Ox 97.8 F 70 24 218/99 98 01/03/21 06:23 01/03/21 07:30 01/03/21 06:23 01/03/21 07:34 01/03/21 07:30 Plan Activity: advance as tolerated, fall precautions Diet: low fat, renal Special Instructions: restrict fluid intake to (per your enterprise software developer recommendation), record daily weights, record daily BP diary Follow up with: PRIMARY CARE, [Primary Care Provider] - 7 Days EMMA SHEN MD [Staff Physician] - 7 Days Prescriptions: hydrALAZINE [Apresoline TAB] 100 mg PO TID #90 tab Docusate Sodium [Colace CAP] 100 mg PO DAILY #30 capsule glipiZIDE XL [Glucotrol Xl] 2.5 mg PO QAM #30 tab.er.24 propranoloL [Inderal] 10 mg PO DAILY #30 tablet NIFEdipine XL [Procardia Xl] 90 mg PO QDAY #30 tablet lisinopriL [Zestril TAB] 10 mg PO QDAY #30 tab Ondansetron [Zofran Odt] 4 mg PO Q6H #30 tab.rapdis
[2021-01-03] MEDS ORDERED: NIFEdipine XL 90 MG TAB PO SCH (10:00)
[2021-01-03] MEDS ORDERED: hydrALAZINE 20 MG/1 ML INJ IV PRN (10:00)
[2021-01-03] MEDS ORDERED: LISINOPRIL 40 MG TAB PO SCH (10:00)
--- NOTE | 2021-01-03 11:08 | Progress Note ---
Assessment and Plan Impression * End-stage renal disease on maintenance hemodialysis * Respiratory failure secondary to CHF * Accelerated hypertension * Diabetes * Anemia Recommendations * Patient had uneventful hemodialysis treatment yesterday * His blood pressure remains elevated. Adjust antihypertensive medication * Adjust diet and meds for ESRD state * Discontinue Metformin * Avoid nephrotoxins * Monitor fluid status and electrolytes closely * Epogen once blood pressure is under better control * Binders with meals * Patient still does have some shortness of breath and his blood pressure is also elevated. Shall do an additional dialysis treatment today prior to his discharge Subjective Date of service: 01/03/21 Interval history: Shortness of breath is better. However patient states that he still does have some shortness of breath. Denies any nausea or vomiting. Objective - Vital Signs Vital signs: Vital Signs - 12hr 01/03/21 01/03/21 01/03/21 03:39 06:23 07:30 Temperature 97.7 F 97.8 F Pulse Rate 64 71 70 Respiratory 24 24 Rate Blood Pressure 216/108 254/114 Blood Pressure [Left] O2 Sat by Pulse 100 98 98 Oximetry 01/03/21 07:34 Temperature Pulse Rate Respiratory Rate Blood Pressure Blood Pressure 218/99 [Left] O2 Sat by Pulse Oximetry - General Appearance General appearance: well-developed, well-nourished EENT: PERRL, mucous membranes moist Neck: no JVD, no thyromegaly, no carotid bruit, supple, other (Right IJ PermCath in place) Respiratory: Present: Decreased Breath Sounds (At the bases) Cardiology: regular, normal heart rate Gastrointestinal: normal, normoactive bowel sounds Integumentary: other (No edema) - Lab 01/03/21 05:24 01/03/21 05:24 Most recent lab results Calcium 8.6 mg/dL (8.4-10.2) 01/03/21 05:24 Medications & Allergies - Medications Allergies/Adverse Reactions: Allergies No Known Allergies Allergy (Verified 01/02/21 19:12) Home Medications: Home Medications Medication Instructions Recorded Confirmed Last Taken Type methIMAzole [Methimazole] 20 mg PO DAILY 01/19/18 01/02/21 1 Day Ago History ~01/01/21 Docusate Sodium [Colace CAP] 100 mg PO DAILY #30 capsule 01/03/21 Unknown Rx NIFEdipine XL [Procardia Xl] 90 mg PO QDAY #30 tablet 01/03/21 Unknown Rx Ondansetron [Zofran Odt] 4 mg PO Q6H #30 tab.rapdis 01/03/21 Unknown Rx glipiZIDE XL [Glucotrol Xl] 2.5 mg PO QAM #30 tab.er.24 01/03/21 Unknown Rx hydrALAZINE [Apresoline TAB] 100 mg PO TID #90 tab 01/03/21 Unknown Rx lisinopriL [Zestril TAB] 10 mg PO QDAY #30 tab 01/03/21 Unknown Rx propranoloL [Inderal] 10 mg PO DAILY #30 tablet 01/03/21 Unknown Rx Active Medications: Generic Name Dose Route Start Last Admin Trade Name Freq PRN Reason Stop Dose Admin Albuterol 2.5 mg 01/02/21 11:00 Albuterol 2.5 Mg/3 Ml Nebu IH Q3HRT PRN Shortness Of Breath Dextrose 50 ml 01/02/21 10:00 Dextrose 50% In Water (25gm) 50 Ml Syringe IV Q30MIN PRN Hypoglycemia Protocol Docusate Sodium 100 mg 01/02/21 10:00 01/03/21 09:07 Docusate Sodium 100 Mg Cap PO Not Given BID RODRIGO Famotidine 20 mg 01/02/21 10:00 01/03/21 08:40 Famotidine 20 Mg Tab PO 20 mg BID RODRIGO Administration Heparin Sodium (Porcine) 5,000 unit 01/02/21 14:00 01/03/21 06:27 Heparin 5,000 Unit/1 Ml Vial SUB-Q Not Given Q8HR RODRIGO Hydralazine HCl 100 mg 01/02/21 14:00 01/03/21 08:40 Hydralazine 100 Mg Tab PO 100 mg TID RODRIGO Administration Hydralazine HCl 10 mg 01/03/21 10:00 Hydralazine 20 Mg/1 Ml Inj IV Q4HR PRN Hypertension Ceftriaxone Sodium 1 gm in 50 mls @ 100 mls/hr 01/02/21 15:00 01/02/21 16:55 Rocephin/Ns 1 Gm/50 Ml IV 100 mls/hr Q24H RODRIGO Administration Protocol Insulin Human Lispro 0 unit 01/02/21 11:30 01/03/21 09:20 Insulin Lispro 100 Unit/Ml SUB-Q Not Given ACHS RODRIGO Protocol Lisinopril 40 mg 01/03/21 10:00 Lisinopril 40 Mg Tab PO QDAY RODRIGO Methimazole 10 mg 01/02/21 10:00 01/03/21 09:08 Methimazole 5 Mg Tab PO 10 mg QDAY RODRIGO Administration Naloxone HCl 0.1 mg 01/02/21 10:00 Naloxone 0.4 Mg/1 Ml Inj IV Q2MIN PRN Res Rate </= 8 or 02 SAT < 92% Nifedipine 90 mg 01/03/21 10:00 01/03/21 09:08 Nifedipine Xl 90 Mg Tab PO 90 mg QDAY RODRIGO Administration Ondansetron HCl 4 mg 01/02/21 10:00 01/03/21 09:09 Ondansetron 4 Mg/2 Ml Inj IV 4 mg Q4H PRN Administration Nausea And Vomiting Oxycodone/Acetaminophen 1 tab 01/02/21 10:00 Oxycodone /Acetaminophen 5-325mg Tab PO Q6H PRN Pain, Moderate (4-6) Propranolol HCl 10 mg 01/02/21 10:00 01/03/21 08:40 Propranolol 10 Mg Tab PO 10 mg DAILY RODRIGO Administration Sodium Chloride 10 ml 01/02/21 10:00 01/03/21 09:08 Sodium Chloride 0.9% 10 Ml Flush Syringe IV 10 ml BID RODRIGO Administration Sodium Chloride 10 ml 01/02/21 10:00 Sodium Chloride 0.9% 10 Ml Flush Syringe IV PRN PRN LINE FLUSH
[2021-01-03 12:00] LABS: Hepatitis C Virus Antibody Non-Reactive (NonReactive)
[2021-01-03 12:50] LABS: Hepatitis B Surface Antigen Nonreactive (Negative)
[2021-01-03] MEDS: cefTRIAXone/NS 1 GM/50 ML 1 GM/50 ML BAG IV SCH (15:40)
[2021-01-03 16:14] VITALS: BP 173/90
--- NOTE | 2021-01-07 14:44 | Electrocardiograph Report ---
[facility] Test Date: 2021-01-02 Test Time: 05:41:53 Pat Name: MERRILL MAJOR Department: Room: A358 Gender: M Zinc Miner: DEBBIE : 1960 Requested By: EUGENE DAIGLE III Order Number: [id number] Reading MD: Johnathon Hough Measurements Intervals [place] Rate: 72 P: -30 AL: 192 QRS: 39 QRSD: 82 T: 86 QT: 431 QTc: 474 Interpretive Statements Sinus rhythm Compared to ECG 10/02/2020 07:43:18 Atrial premature complex(es) no longer present Electronically Signed On 01-07-2021 14:43:57 EDT by Johnathon Hough
== END 2021-01-03 16:49 | disposition home or self-care (01) ==
LOC: ED 04:46 → INTOOBSV 09:27 → 3A 09:27
PROVIDERS: ADMIT Internal Medicine; ATTEND Internal Medicine
DX: J96.01 Acute respiratory failure with hypoxia (principal); E87.70 Fluid overload, unspecified; I16.0 Hypertensive urgency; I13.2 Hypertensive heart and chronic kidney disease with heart failure and with stage 5 chronic kidney disease, or end stage renal disease; I50.9 Heart failure, unspecified; N18.6 End stage renal disease; E11.22 Type 2 diabetes mellitus with diabetic chronic kidney disease; J81.1 Chronic pulmonary edema; I21.A1 Myocardial infarction type 2; E05.90 Thyrotoxicosis, unspecified without thyrotoxic crisis or storm; E07.9 Disorder of thyroid, unspecified; E78.5 Hyperlipidemia, unspecified; R77.8 Other specified abnormalities of plasma proteins; Z79.84 Long term (current) use of oral hypoglycemic drugs; Z99.2 Dependence on renal dialysis; Z91.14 Patient's other noncompliance with medication regimen
CPT/HCPCS: 36415; 71045; 78580; 80053; 80061; 80074; 82962; 83615; 83880; 84145; 84484; 85025; 85379; 86140; 93005; 93306; 93970; 96365; 96372; 96375; 96376; 99291; A9540; G0378; J0360; J0696; J1644; J2405; 85007; J1815

== ENCOUNTER 2021-10-14 16:18 | Emergency (ER) | payer MEDICARE, OTHER ==
[2021-10-14] MEDS ORDERED: NORepinephrine/NS 8 MG-250 ML 8 MG/250 ML INFUS..BTL IV ONE (16:26)
--- NOTE | 2021-10-14 16:38 | Emergency Department Report ---
ED CPR HPI - General Chief Complaint: Cardiac Arrest/CPR Stated Complaint: UNRESPONSIVE Time Seen by Provider: 10/14/21 16:33 Source: EMS Mode of arrival: Stretcher Limitations: Other - History of Present Illness Initial Comments: Patient is a 60-year-old male brought in by EMS from his residence after a friend noted that he was not acting right. EMS arrived to find patient altered with agonal respirations. He was also bradycardic and hypotensive. He was intubated in route and self extubated prior to arrival and had an episode of vomiting. History of chronic kidney disease on dialysis and reportedly missed his last 2 appointments. - Related Data Home Medications Medication Instructions Recorded Confirmed Last Taken methIMAzole [Methimazole] 20 mg PO DAILY 01/19/18 01/02/21 1 Day Ago ~01/01/21 Previous Rx's Medication Instructions Recorded Last Taken Type Docusate Sodium [Colace CAP] 100 mg PO DAILY #30 capsule 01/03/21 Unknown Rx NIFEdipine XL [Procardia Xl] 90 mg PO QDAY #30 tablet 01/03/21 Unknown Rx Ondansetron [Zofran Odt] 4 mg PO Q6H #30 tab.rapdis 01/03/21 Unknown Rx glipiZIDE XL [Glucotrol Xl] 2.5 mg PO QAM #30 tab.er.24 01/03/21 Unknown Rx hydrALAZINE [Apresoline TAB] 100 mg PO TID #90 tab 01/03/21 Unknown Rx lisinopriL [Zestril TAB] 10 mg PO QDAY #30 tab 01/03/21 Unknown Rx propranoloL [Inderal] 10 mg PO DAILY #30 tablet 01/03/21 Unknown Rx Allergies Allergy/AdvReac Type Severity Reaction Status Date / Time No Known Allergies Allergy Verified 10/14/21 16:24 ED Review of Systems ROS: Stated complaint: UNRESPONSIVE Other details as noted in HPI Comment: Unobtainable due to pts medical conditions ED Past Medical Hx - Past Medical History Hx Hypertension: Yes Hx Congestive Heart Failure: No Hx Diabetes: Yes Hx Renal Disease: Yes (Dialysis pt x 3 weeks, chest access) Hx Asthma: No Hx HIV: No - Social History Smoking Status: Never Smoker - Medications Home Medications: Home Medications Medication Instructions Recorded Confirmed Last Taken Type methIMAzole [Methimazole] 20 mg PO DAILY 01/19/18 01/02/21 1 Day Ago History ~01/01/21 Docusate Sodium [Colace CAP] 100 mg PO DAILY #30 capsule 01/03/21 Unknown Rx NIFEdipine XL [Procardia Xl] 90 mg PO QDAY #30 tablet 01/03/21 Unknown Rx Ondansetron [Zofran Odt] 4 mg PO Q6H #30 tab.rapdis 01/03/21 Unknown Rx glipiZIDE XL [Glucotrol Xl] 2.5 mg PO QAM #30 tab.er.24 01/03/21 Unknown Rx hydrALAZINE [Apresoline TAB] 100 mg PO TID #90 tab 01/03/21 Unknown Rx lisinopriL [Zestril TAB] 10 mg PO QDAY #30 tab 01/03/21 Unknown Rx propranoloL [Inderal] 10 mg PO DAILY #30 tablet 01/03/21 Unknown Rx ED Physical Exam - General Limitations: Other General appearance: other (Patient unresponsive. Chronically ill-appearing with vomitus covering face.) - Head Head exam: Present: atraumatic, normocephalic - Eye Eye exam: Present: other (Pupils sluggish, blank staring) - Respiratory Respiratory exam: Present: rales (Diffuse rales bilaterally), other (Agonal respirations) - Cardiovascular Cardiovascular Exam: Present: bradycardia, normal heart sounds - GI/Abdominal GI/Abdominal exam: Present: distended - Rectal Rectal exam: Present: deferred - Neurological Exam Neurological exam: Present: other (GCS 3) - Skin Skin exam: Present: warm, dry ED Medical Decision Making - Medical Decision Making Patient intubated successfully using glide scope. IV fluids started for hypotension in the 50s. He was given 0.5 mg of atropine x2 for bradycardia in the 20s with no improvement. I attempted to pace him transcutaneously however this did not produce a palpable pulse or a pulse using bedside Doppler. Given patient's condition and likely poor prognosis the decision was made to discontinue further resuscitative efforts. Patient . Critical care attestation.: If time is entered above; I have spent that time in minutes in the direct care of this critically ill patient, excluding procedure time. ED Disposition Clinical Impression: Cardiopulmonary arrest Disposition: 20 Is pt being admited?: No
[2021-10-14] MEDS ORDERED: ROCURONIUM 50 MG/5 ML INJ IV ONE (17:59)
[2021-10-14] MEDS ORDERED: ETOMIDATE 20 MG/10 ML INJ IV ONE (17:59)
== END 2021-10-14 17:57 ==
LOC: ED 16:18
DX: I46.9 Cardiac arrest, cause unspecified (principal); I10 Essential (primary) hypertension; E11.9 Type 2 diabetes mellitus without complications; N28.9 Disorder of kidney and ureter, unspecified; Z79.899 Other long term (current) drug therapy
CPT/HCPCS: 99285; J2354; J3490; 94002